=== PATIENT | female | born 1945 | race African-American/Black ===

== ENCOUNTER 2019-03-16 12:03 | Inpatient (IN) | payer BC, MEDICAID ==
[~2019-03-16] VITALS: Ht 177.8 cm; Wt 71.7 kg
[2019-03-16 12:31] LABS: BASOPHILS % 0.6 % (0.0-2.0); EOSINOPHILS % 0.9 % (0.0-5.0); HEMATOCRIT. 33.7 % (36.0-48.0); HEMOGLOBIN. 11.5 g/dL (12.0-16.0); LYMPHOCYTES % 25.2 % (20.0-50.0); MEAN CORPUSCULAR HEMOGLOBIN 29.3 pg (28.0-32.0); MEAN CORPUSCULAR VOLUME 85.9 fL (81.0-99.0); MONOCYTES % 14.2 % (2.0-8.0); NEUTROPHILS % 59.1 % (40.0-76.0); RED BLOOD CELL COUNT 3.92 mill/uL (4.2-5.4); RED CELL DISTRIBUTION WIDTH 16.3 % (11.6-14.6)
[2019-03-16 12:40] LABS: CHLORIDE 111 mEq/L (98-107)
[2019-03-16 12:41] LABS: INR 1.3; PROTHROMBIN TIME 13.6 sec (9.6-11.0)
[2019-03-16 12:43] LABS: ETHANOL BLOOD < 10 mg/dL
[2019-03-16 12:50] LABS: MEAN PLATELET VOLUME 7.4 fl (7.4-10.4); PLATELET 244 x1000/uL (130-400)
[2019-03-16] MEDS ORDERED: ALBUTEROL (0.083%) 2.5MG/3ML NEB HHN STA (13:55)
[2019-03-16] MEDS ORDERED: ONDANSETRON HCL 4MG/2ML INJ IV PRN (14:30)
[2019-03-16] MEDS ORDERED: ACETAMINOPHEN 325MG TABLET PO PRN (14:30)
[2019-03-16] MEDS ORDERED: IPRATROPIUM/ALBUTEROL 0.5-3(2.5)MG/3ML NEB HHN PRN (14:30)
[2019-03-16] MEDS ORDERED: LIDOCAINE HCL 1% 20ML VIAL (Pyxis) INJ ONE (14:33)
[2019-03-16] MEDS ORDERED: SODIUM BICARBONATE 4% (2.4MEQ) 5ML VIAL IV ONE (14:34)
[2019-03-16 16:00] VITALS: BP 92/54
[2019-03-16 17:17] VITALS: BP 92/54
[2019-03-16] MEDS ORDERED: AMLO5TAB88 PO (17:28)
[2019-03-16] MEDS ORDERED: BENA40TA9 PO (17:28)
[2019-03-16] MEDS ORDERED: IBUP-2030 PO (17:28)
[2019-03-16] MEDS: SPIRONOLACTONE 50MG TABLET PO SCH (18:15)
[2019-03-16] MEDS ORDERED: SIMETHICONE 80MG TABLET CHEW PO PRN (18:45)
[2019-03-16] MEDS ORDERED: MORPHINE SULFATE 2 MG/ML CPJ (NOT FOR IM USE) IV NR (18:45)
[2019-03-16 20:00] VITALS: BP 98/64
[2019-03-16] MEDS: FUROSEMIDE 40MG TABLET PO SCH (20:31)
[2019-03-17] VITALS (8 sets, daily range): BP systolic 75–110; BP diastolic 46–73
[2019-03-17 07:11] LABS: BASOPHILS % 0.4 % (0.0-2.0); EOSINOPHILS % 1.1 % (0.0-5.0); HEMATOCRIT. 28.9 % (36.0-48.0); HEMOGLOBIN. 9.9 g/dL (12.0-16.0); MEAN CORPUSCULAR HEMOGLOBIN 28.8 pg (28.0-32.0); MEAN CORPUSCULAR VOLUME 84.3 fL (81.0-99.0); MEAN PLATELET VOLUME 7.5 fl (7.4-10.4); MONOCYTES % 13.3 % (2.0-8.0); NEUTROPHILS % 56.2 % (40.0-76.0); PLATELET 224 x1000/uL (130-400); RED BLOOD CELL COUNT 3.43 mill/uL (4.2-5.4); RED CELL DISTRIBUTION WIDTH 16.3 % (11.6-14.6)
[2019-03-17 07:12] LABS: CHLORIDE 111 mEq/L (98-107)
[2019-03-17] MEDS: FUROSEMIDE 40MG TABLET PO SCH (09:00)
[2019-03-17] MEDS: SPIRONOLACTONE 50MG TABLET PO SCH (09:00)
[2019-03-17] MEDS: MIDODRINE HCL 5MG TABLET PO SCH ×3 (09:21→16:57)
[2019-03-17] MEDS ORDERED: SORBITOL 70% SOLN 30ML PO SCH (13:30)
[2019-03-17 17:55] LABS: HEPATITIS B SURFACE ANTIGEN NEGATIVE
[2019-03-17 18:25] LABS: HEPATITIS A AB IGM NEGATIVE (NEGATIVE)
== END 2019-03-17 20:20 | disposition home or self-care (01) | DRG 432 ==
LOC: ER 12:19 → 6WST 13:40 → ENRESERV 15:01
PROVIDERS: ADMIT Internal Medicine; ATTEND Internal Medicine
PROC: 0W9G3ZZ Drainage of Peritoneal Cavity, Percutaneous Approach (ICD-10-PCS; principal; 2019-03-16)
DX: K74.60 Unspecified cirrhosis of liver (principal); E43 Unspecified severe protein-calorie malnutrition; R18.8 Other ascites; B19.20 Unspecified viral hepatitis C without hepatic coma; I10 Essential (primary) hypertension; E87.8 Other disorders of electrolyte and fluid balance, not elsewhere classified; D64.9 Anemia, unspecified; I95.9 Hypotension, unspecified
CPT/HCPCS: 36415; 49083; 71045; 74176; 76700; 80048; 80320; 82040; 82140; 83880; 84484; 86705; 86709; 86803; 87340; 93005; 93970; 94640; 96374; 99285; J2270; J3490; J7611; G0480

== ENCOUNTER 2019-04-18 18:21 | Emergency (ER) | payer BC, MEDICAID ==
[~2019-04-18] VITALS: Ht 185.4 cm; Wt 69.0 kg
[~2019-04-18 18:21] MED LIST: IBUP-2030 PO
[2019-04-18] MEDS ORDERED: KETOROLAC 15MG/ML VIAL IV ONE (22:30)
[2019-04-18] MEDS ORDERED: HYDROCODONE/ACETAMINOPHEN 5/325MG TABLET PO ONE (22:30)
[2019-04-18 23:36] LABS: BASOPHILS % 1.2 % (0.0-2.0); EOSINOPHILS % 0.9 % (0.0-5.0); HEMATOCRIT. 34.1 % (36.0-48.0); HEMOGLOBIN. 11.5 g/dL (12.0-16.0); LYMPHOCYTES % 23.1 % (20.0-50.0); MEAN CORPUSCULAR HEMOGLOBIN 27.2 pg (28.0-32.0); MEAN PLATELET VOLUME 7.1 fl (7.4-10.4); NEUTROPHILS % 60.8 % (40.0-76.0); PLATELET 270 x1000/uL (130-400); RED BLOOD CELL COUNT 4.21 mill/uL (4.2-5.4); RED CELL DISTRIBUTION WIDTH 16.1 % (11.6-14.6)
[2019-04-18 23:39] LABS: INR 1.3
[2019-04-18 23:54] LABS: CHLORIDE 110 mEq/L (98-107)
[2019-04-19 01:03] VITALS: BP 99/76
== END 2019-04-19 00:21 | disposition short-term general hospital (02) ==
LOC: ER 18:21
DX: R18.8 Other ascites (principal); R06.03 Acute respiratory distress; I10 Essential (primary) hypertension
CPT/HCPCS: 36415; 71045; 80053; 83690; 83880; 84484; 85025; 85610; 93005; 96374; 99285; J1885

== ENCOUNTER 2019-05-03 11:20 | Emergency (ER) | payer BC, MEDICAID ==
[~2019-05-03] VITALS: Ht 172.7 cm; Wt 82.0 kg
[2019-05-03] MEDS ORDERED: ACETAMINOPHEN WITH CODEINE 300/30MG TABLET PO STA (11:36)
[2019-05-03 12:08] LABS: BASOPHILS % 0.7 % (0.0-2.0); EOSINOPHILS % 2.1 % (0.0-5.0); HEMATOCRIT. 35.9 % (36.0-48.0); HEMOGLOBIN. 12.1 g/dL (12.0-16.0); LYMPHOCYTES % 21.3 % (20.0-50.0); MEAN CORPUSCULAR HEMOGLOBIN 26.8 pg (28.0-32.0); MEAN CORPUSCULAR VOLUME 79.5 fL (81.0-99.0); MEAN PLATELET VOLUME 7.1 fl (7.4-10.4); MONOCYTES % 12.9 % (2.0-8.0); PLATELET 271 x1000/uL (130-400); RED BLOOD CELL COUNT 4.51 mill/uL (4.2-5.4); RED CELL DISTRIBUTION WIDTH 16.1 % (11.6-14.6)
[2019-05-03 12:13] LABS: CHLORIDE 110 mEq/L (98-107)
[2019-05-03 12:14] LABS: INR 1.3; PROTHROMBIN TIME 12.7 sec (9.6-11.0)
[2019-05-03] MEDS ORDERED: LIDOCAINE HCL 1% 20ML VIAL (Pyxis) INJ ONE (13:37)
[2019-05-03] MEDS ORDERED: SODIUM BICARBONATE 4% (2.4MEQ) 5ML VIAL IV ONE (13:38)
[2019-05-03 16:55] VITALS: BP 100/64
== END 2019-05-03 16:57 | disposition home or self-care (01) ==
LOC: ER 11:20
DX: R18.8 Other ascites (principal); I10 Essential (primary) hypertension; Z88.5 Allergy status to narcotic agent
CPT/HCPCS: 36415; 49083; 80053; 83690; 85025; 85610; 89050; 99285; J3490

== ENCOUNTER 2019-05-24 11:45 | Emergency (ER) | payer BC, MEDICAID ==
[~2019-05-24] VITALS: Ht 165.1 cm; Wt 64.0 kg
[2019-05-24 15:07] LABS: HEMATOCRIT. 38.2 % (36.0-48.0); HEMOGLOBIN. 12.6 g/dL (12.0-16.0); MEAN CORPUSCULAR HEMOGLOBIN 26.3 pg (28.0-32.0); MEAN CORPUSCULAR VOLUME 79.4 fL (81.0-99.0); MEAN PLATELET VOLUME 6.8 fl (7.4-10.4); PLATELET 274 x1000/uL (130-400); RED BLOOD CELL COUNT 4.81 mill/uL (4.2-5.4); RED CELL DISTRIBUTION WIDTH 17.6 % (11.6-14.6)
[2019-05-24] MEDS ORDERED: LIDOCAINE HCL 1% 20ML VIAL (Pyxis) INJ ONE (15:09)
[2019-05-24] MEDS ORDERED: SODIUM BICARBONATE 4% (2.4MEQ) 5ML VIAL IV ONE (15:09)
[2019-05-24 15:13] LABS: CHLORIDE 109 mEq/L (98-107)
[2019-05-24 15:51] LABS: ATYPICAL LYMPHOCYTES 3; PLATELET ESTIMATE NORMAL
[2019-05-24 17:12] VITALS: BP 99/57
== END 2019-05-24 17:38 | disposition home or self-care (01) ==
LOC: ER 11:55
DX: R14.0 Abdominal distension (gaseous) (principal); R06.02 Shortness of breath; I10 Essential (primary) hypertension; Z88.5 Allergy status to narcotic agent
CPT/HCPCS: 36415; 49083; 80053; 83690; 85025; 87070; 87075; 87205; 89050; 99285; J3490

== ENCOUNTER 2019-07-05 02:19 | Emergency (ER) | payer BC, MEDICAID ==
[~2019-07-05] VITALS: Ht 170.2 cm; Wt 78.0 kg
[2019-07-05 03:05] LABS: EOSINOPHILS % 1.6 % (0.0-5.0); HEMATOCRIT. 36.1 % (36.0-48.0); HEMOGLOBIN. 12.2 g/dL (12.0-16.0); MEAN CORPUSCULAR HEMOGLOBIN 26.6 pg (28.0-32.0); NEUTROPHILS % 63.4 % (40.0-76.0); PLATELET 299 x1000/uL (130-400); RED BLOOD CELL COUNT 4.57 mill/uL (4.2-5.4); RED CELL DISTRIBUTION WIDTH 19.5 % (11.6-14.6)
[2019-07-05 03:13] LABS: CHLORIDE 108 mEq/L (98-107); INR 1.2; PROTHROMBIN TIME 12.1 sec (9.6-11.0)
[2019-07-05] MEDS ORDERED: POTASSIUM CHLORIDE 20MEQ TABLET SR PO NR (03:30)
[2019-07-05 03:44] VITALS: BP 100/65
== END 2019-07-05 03:45 | disposition home or self-care (01) ==
LOC: ER 02:19
DX: R18.8 Other ascites (principal); K72.90 Hepatic failure, unspecified without coma; Z88.5 Allergy status to narcotic agent
CPT/HCPCS: 36415; 99283

== ENCOUNTER 2019-07-12 16:33 | Emergency (ER) | payer BC, MEDICAID ==
[~2019-07-12] VITALS: Ht 165.1 cm; Wt 75.0 kg
[2019-07-13] MEDS ORDERED: LIDOCAINE HCL 2%/EPINEPHRINE/PF 10 ML VIAL INFIL ONE
[2019-07-13 03:00] VITALS: BP 120/76
== END 2019-07-13 03:58 | disposition home or self-care (01) ==
LOC: ER 16:33
DX: R18.8 Other ascites (principal); K74.60 Unspecified cirrhosis of liver; Z88.6 Allergy status to analgesic agent
CPT/HCPCS: 99285; J3490

== ENCOUNTER 2019-08-08 13:20 | Inpatient (IN) | payer BC, MEDICAID ==
[~2019-08-08] VITALS: Ht 185.4 cm; Wt 72.1 kg
[2019-08-08] MEDS ORDERED: SODIUM CHLORIDE 0.9% 1,000 ML IV ONE (22:41)
[2019-08-08 23:59] LABS: BASOPHILS % 0.4 % (0.0-2.0); EOSINOPHILS % 1.6 % (0.0-5.0); HEMOGLOBIN. 10.9 g/dL (12.0-16.0); LYMPHOCYTES % 20.7 % (20.0-50.0); MEAN CORPUSCULAR HEMOGLOBIN 26.8 pg (28.0-32.0); MEAN CORPUSCULAR VOLUME 78.8 fL (81.0-99.0); MEAN PLATELET VOLUME 6.7 fl (7.4-10.4); MONOCYTES % 11.9 % (2.0-8.0); NEUTROPHILS % 65.4 % (40.0-76.0); PLATELET 266 x1000/uL (130-400); RED BLOOD CELL COUNT 4.06 mill/uL (4.2-5.4); RED CELL DISTRIBUTION WIDTH 19.8 % (11.6-14.6)
[2019-08-09 00:01] LABS: CHLORIDE 106 mEq/L (98-107)
[2019-08-09 00:03] LABS: INR 1.3; PROTHROMBIN TIME 13.1 sec (9.6-11.0)
[2019-08-09 03:00] VITALS: BP 89/57
[2019-08-09] MEDS ORDERED: FURO-152 PO (04:13)
[2019-08-09] MEDS ORDERED: CLONIDINE 0.1MG TABLET PO PRN (04:30)
[2019-08-09] MEDS ORDERED: ONDANSETRON HCL 4MG/2ML INJ IV PRN (04:30)
[2019-08-09] MEDS: MORPHINE SULFATE 2 MG/ML CPJ (NOT FOR IM USE) IV PRN ×2 (06:49→18:43)
[2019-08-09] MEDS: FUROSEMIDE 20MG TABLET PO SCH (10:17)
[2019-08-09 12:02] LABS: BASOPHILS % 0.3 % (0.0-2.0); EOSINOPHILS % 0.8 % (0.0-5.0); HEMATOCRIT. 34.5 % (36.0-48.0); HEMOGLOBIN. 11.5 g/dL (12.0-16.0); LYMPHOCYTES % 21.6 % (20.0-50.0); MEAN CORPUSCULAR HEMOGLOBIN 26.5 pg (28.0-32.0); MEAN CORPUSCULAR VOLUME 79.6 fL (81.0-99.0); MONOCYTES % 9.8 % (2.0-8.0); NEUTROPHILS % 67.5 % (40.0-76.0); PLATELET 265 x1000/uL (130-400); RED BLOOD CELL COUNT 4.34 mill/uL (4.2-5.4)
[2019-08-09] MEDS ORDERED: LIDOCAINE HCL 1% 20ML VIAL (Pyxis) INJ ONE (13:24)
[2019-08-09] MEDS ORDERED: SODIUM BICARBONATE 4% (2.4MEQ) 5ML VIAL IV ONE (13:25)
[2019-08-09 20:00] VITALS: BP 98/67
[2019-08-10] VITALS: BP 89/64
[2019-08-10] MEDS: MORPHINE SULFATE 2 MG/ML CPJ (NOT FOR IM USE) IV PRN ×2 (00:39→22:17)
[2019-08-10 04:00] VITALS: BP 90/52
[2019-08-10 08:00] VITALS: BP 81/47
[2019-08-10] MEDS: ACETAMINOPHEN 325MG TABLET PO PRN ×2 (08:09→15:47)
[2019-08-10] MEDS: FUROSEMIDE 20MG TABLET PO SCH (09:00)
[2019-08-10 12:00] VITALS: BP 101/68
[2019-08-10 16:00] VITALS: BP 99/66
[2019-08-10 20:00] VITALS: BP 103/66
[2019-08-11] VITALS: BP 94/55
[2019-08-11 04:00] VITALS: BP 100/68
[2019-08-11] MEDS: ACETAMINOPHEN 325MG TABLET PO PRN ×2 (05:22→14:41)
[2019-08-11 08:00] VITALS: BP 91/62
[2019-08-11] MEDS: FUROSEMIDE 20MG TABLET PO SCH (09:45)
[2019-08-11 12:00] VITALS: BP 86/60
[2019-08-11 16:00] VITALS: BP 97/63
[2019-08-11] MEDS: KETOROLAC 15MG/ML VIAL IV PRN (17:47)
[2019-08-11 20:00] VITALS: BP 90/53
[2019-08-12] VITALS: BP 96/56
[2019-08-12] MEDS: KETOROLAC 15MG/ML VIAL IV PRN (00:40)
[2019-08-12 04:00] VITALS: BP 103/52
[2019-08-12 08:00] VITALS: BP 93/51
[2019-08-12] MEDS: FUROSEMIDE 20MG TABLET PO SCH (09:14)
[2019-08-12] MEDS: ACETAMINOPHEN 325MG TABLET PO PRN (09:14)
[2019-08-12] MEDS ORDERED: LIDOCAINE HCL 1% 20ML VIAL (Pyxis) INJ ONE (10:18)
[2019-08-12] MEDS ORDERED: SODIUM BICARBONATE 4% (2.4MEQ) 5ML VIAL IV ONE (10:19)
[2019-08-12 12:00] VITALS: BP 105/68
[2019-08-12 12:13] VITALS: BP 93/51
[2019-09-09] MEDS ORDERED: FLOR PO (20:41)
[2019-09-09] MEDS ORDERED: PANT40SU MT (20:41)
[2019-09-09] MEDS ORDERED: MIDO5TAB4 PO (20:41)
[2019-09-09] MEDS ORDERED: THIA100T72 PO (20:41)
[2019-09-16] MEDS ORDERED: PROP10TA10 PO (15:45)
[2019-09-16] MEDS ORDERED: RIFA550T PO (15:45)
[2019-09-16] MEDS ORDERED: LACT10SO7 PO (15:45)
[2019-09-16] MEDS ORDERED: FOLI-43 PO (15:45)
== END 2019-08-12 14:13 | disposition home or self-care (01) | DRG 434 ==
LOC: ER 13:20 → 6EST 08-09 00:39 → EDBEDREQTM 08-09 00:55 → EDBEDREQ 08-09 00:55 → EDBEDREQDT 08-09 00:55 → ENRESERV 08-09 02:02
PROVIDERS: ADMIT Hospitalist; ATTEND Hospitalist
PROC: 0W9G3ZZ Drainage of Peritoneal Cavity, Percutaneous Approach (ICD-10-PCS; principal; 2019-08-09)
PROC: 0W9G3ZZ Drainage of Peritoneal Cavity, Percutaneous Approach (ICD-10-PCS; 2019-08-12)
DX: K70.31 Alcoholic cirrhosis of liver with ascites (principal); I10 Essential (primary) hypertension; D63.8 Anemia in other chronic diseases classified elsewhere; F10.10 Alcohol abuse, uncomplicated; M19.90 Unspecified osteoarthritis, unspecified site; Z88.6 Allergy status to analgesic agent; Z79.899 Other long term (current) drug therapy; I95.9 Hypotension, unspecified
CPT/HCPCS: 36415; 49083; 71045; 80053; 83880; 85025; 96360; 97162; 97166; 99285; C1893; J1885; J2270; J3490; J7030

== ENCOUNTER 2019-08-28 11:41 | Inpatient (IN) | payer BC, MEDICAID ==
[~2019-08-28] VITALS: Ht 162.6 cm; Wt 75.5 kg
[~2019-08-28 11:41] MED LIST changes: +FURO-152 PO; +OCTREOTIDE 1,000 MCG in SODIUM CHLORIDE 0.9% 98 ML IV PRN
[2019-08-28] MEDS ORDERED: PANTOPRAZOLE SODIUM 40 MG/VIAL IV STA (12:02)
[2019-08-28] MEDS ORDERED: SODIUM CHLORIDE 0.9% 1,000 ML IV ONE (12:02)
[2019-08-28] MEDS ORDERED: OCTREOTIDE 1,000 MCG in SODIUM CHLORIDE 0.9% 100 ML IV STA (12:02)
[2019-08-28] MEDS ORDERED: OCTREOTIDE ACETATE 50 MCG/ML 1ML IV STA (12:02)
[2019-08-28 13:14] LABS: BASOPHILS % 0.3 % (0.0-2.0); EOSINOPHILS % 0.3 % (0.0-5.0); HEMATOCRIT. 22.6 % (36.0-48.0); HEMOGLOBIN. 7.6 g/dL (12.0-16.0); LYMPHOCYTES % 16.6 % (20.0-50.0); MEAN CORPUSCULAR HEMOGLOBIN 27.2 pg (28.0-32.0); MEAN CORPUSCULAR VOLUME 80.7 fL (81.0-99.0); MEAN PLATELET VOLUME 7.2 fl (7.4-10.4); MONOCYTES % 7.7 % (2.0-8.0); NEUTROPHILS % 75.1 % (40.0-76.0); PLATELET 151 x1000/uL (130-400); RED CELL DISTRIBUTION WIDTH 19.1 % (11.6-14.6)
[2019-08-28 13:21] LABS: CHLORIDE 111 mEq/L (98-107)
[2019-08-28 13:22] LABS: INR 1.4; PROTHROMBIN TIME 14.3 sec (9.6-11.0)
[2019-08-28] MEDS ORDERED: SODIUM CHLORIDE 0.9% 1000ML BAG (SEPSIS BOLUS) IV ONE ×2 (13:45→17:15)
[2019-08-28] MEDS ORDERED: LIDOCAINE HCL 1% 20ML VIAL (Pyxis) INJ ONE (13:48)
[2019-08-28] MEDS ORDERED: SODIUM BICARBONATE 4% (2.4MEQ) 5ML VIAL IV ONE (13:48)
[2019-08-28] MEDS ORDERED: MORPHINE SULFATE 2 MG/ML CPJ (NOT FOR IM USE) IV PRN (14:15)
[2019-08-28] MEDS: DEXT 5%/0.45% NACL 1000ML 1,000 ML IV SCH (14:15)
[2019-08-28] MEDS ORDERED: PANTOPRAZOLE SODIUM 40 MG/VIAL IV SCH (17:00)
[2019-08-28] MEDS ORDERED: NOREPINEPHRINE 4MG/250ML PMX 250 ML IV STA (17:06)
[2019-08-28] MEDS ORDERED: PIPERACILLIN/TAZ 3.375G PREMIX 50 ML IV ONE (17:15)
[2019-08-28] MEDS ORDERED: PIPERACILLIN/TAZOBACTAM 3.375 G in DEXT 5% WATER 100 ML IV SCH ×2 (19:15→23:00)
[2019-08-28 21:19] LABS: HEMATOCRIT 27.6 % (36.0-48.0); HEMOGLOBIN 9.3 g/dL (12.0-16.0)
[2019-08-28] MEDS ORDERED: PANTOPRAZOLE SODIUM 40 MG/VIAL IV NR (23:14)
[2019-08-28] MEDS ORDERED: VANCOMYCIN 1,250 MG in DEXT 5% WATER 250 ML IV SCH (23:30)
[2019-08-29] VITALS (85 sets, daily range): BP systolic 61–174; BP diastolic 18–82
[2019-08-29] MEDS: DEXT 5%/0.45% NACL 1000ML 1,000 ML IV SCH ×3 (00:15→21:26)
[2019-08-29 00:24] LABS: HEMATOCRIT 27.7 % (36.0-48.0); HEMOGLOBIN 9.2 g/dL (12.0-16.0)
[2019-08-29] MEDS ORDERED: NOREPINEPHRINE 4MG/250ML PMX 250 ML IV PRN (01:45)
[2019-08-29] MEDS ORDERED: NOREPINEPHRINE 4MG in DEXT 5% WATER 250ML IV PRN (03:45)
[2019-08-29] MEDS: OCTREOTIDE 1000MCG in SODIUM CHLORIDE 0.9% 100ML IV PRN (04:38)
[2019-08-29 06:16] LABS: BASOPHILS % 0.2 % (0.0-2.0); EOSINOPHILS % 0.9 % (0.0-5.0); HEMATOCRIT. 29.2 % (36.0-48.0); HEMOGLOBIN. 9.9 g/dL (12.0-16.0); LYMPHOCYTES % 12.3 % (20.0-50.0); MEAN CORPUSCULAR HEMOGLOBIN 28.4 pg (28.0-32.0); MEAN PLATELET VOLUME 7.4 fl (7.4-10.4); MONOCYTES % 7.1 % (2.0-8.0); NEUTROPHILS % 79.5 % (40.0-76.0); PLATELET 203 x1000/uL (130-400); RED BLOOD CELL COUNT 3.47 mill/uL (4.2-5.4); RED CELL DISTRIBUTION WIDTH 18.8 % (11.6-14.6)
[2019-08-29] MEDS: PIPERACILLIN/TAZOBACTAM 2.25 G in DEXTROSE 5% WATER 50 ML IV SCH ×2 (08:54→16:33)
[2019-08-29] MEDS ORDERED: PANTOPRAZOLE SODIUM 40 MG/VIAL IV SCH (09:00)
[2019-08-29] MEDS: PANTOPRAZOLE SODIUM 40 MG/VIAL IV SCH ×2 (11:16→17:01)
[2019-08-29] MEDS ORDERED: SODIUM BICARBONATE 4% (2.4MEQ) 5ML VIAL IV ONE (12:52)
[2019-08-29] MEDS ORDERED: LIDOCAINE HCL 1% 20ML VIAL (Pyxis) INJ ONE (12:53)
[2019-08-29] MEDS ORDERED: ALBUMIN HUMAN 25GM/100ML (25%) IV NR (14:15)
[2019-08-29] MEDS: MIDODRINE HCL 5MG TABLET PO SCH ×2 (14:30→17:01)
[2019-08-29] MEDS ORDERED: NOREPINEPHRINE 4 MG in DEXT 5% WATER 246 ML IV PRN (18:41)
[2019-08-29 22:59] LABS: CLARITY URINE CLEAR (CLEAR); COLOR URINE YELLOW (YELLOW); KETONES URINE NEGATIVE (NEGATIVE); LEUKOCYTE ESTERASE URINE 1+ (NEGATIVE); NITRITE URINE NEGATIVE (NEGATIVE); OCCULT BLOOD URINE NEGATIVE (NEGATIVE); PH URINE 5.5 (4.5-8.0); PROTEIN URINE NEGATIVE (NEGATIVE); SPECIFIC GRAVITY URINE 1.014 (1.005-1.030)
[2019-08-30] VITALS (100 sets, daily range): BP systolic 79–131; BP diastolic 34–103
[2019-08-30] MEDS: PIPERACILLIN/TAZOBACTAM 2.25 G in DEXTROSE 5% WATER 50 ML IV SCH ×3 (00:13→16:24)
[2019-08-30] MEDS: NOREPINEPHRINE 16 MG in DEXT 5% WATER 234 ML IV PRN ×2 (01:25→16:25)
[2019-08-30 05:57] LABS: BASOPHILS % 0.8 % (0.0-2.0); HEMOGLOBIN. 10.3 g/dL (12.0-16.0); LYMPHOCYTES % 22.2 % (20.0-50.0); MEAN CORPUSCULAR HEMOGLOBIN 27.8 pg (28.0-32.0); MEAN CORPUSCULAR VOLUME 83.9 fL (81.0-99.0); MEAN PLATELET VOLUME 7.7 fl (7.4-10.4); MONOCYTES % 7.2 % (2.0-8.0); NEUTROPHILS % 68.8 % (40.0-76.0); PLATELET 191 x1000/uL (130-400); RED BLOOD CELL COUNT 3.69 mill/uL (4.2-5.4); RED CELL DISTRIBUTION WIDTH 18.6 % (11.6-14.6)
[2019-08-30 06:13] LABS: PHOSPHORUS 3.4 mg/dL (2.5-4.9)
[2019-08-30] MEDS: PANTOPRAZOLE SODIUM 40 MG/VIAL IV SCH ×2 (08:26→17:14)
[2019-08-30] MEDS: MIDODRINE HCL 5MG TABLET PO SCH ×3 (08:27→17:00)
[2019-08-30] MEDS: OCTREOTIDE 1000MCG in SODIUM CHLORIDE 0.9% 100ML IV PRN (09:35)
[2019-08-30] MEDS ORDERED: ALBUMIN HUMAN 25GM/100ML (25%) IV NR (09:45)
[2019-08-30] MEDS ORDERED: BACTERIOSTATIC SODIUM CHLORIDE 0.9% 30ML VIAL IJ ONE (11:27)
[2019-08-30] MEDS: DEXT 5%/0.45% NACL 1000ML 1,000 ML IV SCH ×2 (13:10→16:15)
[2019-08-30] MEDS ORDERED: VANCOMYCIN 1 G PREMIX 200 ML IV NR (15:00)
[2019-08-30] MEDS ORDERED: MIDAZOLAM HCL 5 MG/5 ML VIAL ONE (17:16)
[2019-08-30] MEDS ORDERED: FENTANYL CITRATE/PF 50MCG/ML 2ML VIAL ONE (17:17)
[2019-08-30] MEDS ORDERED: MIDAZOLAM HCL 5 MG/5 ML VIAL IV PRN (17:38)
[2019-08-31] VITALS (96 sets, daily range): BP systolic 66–127; BP diastolic 17–70
[2019-08-31] MEDS: PIPERACILLIN/TAZOBACTAM 2.25 G in DEXTROSE 5% WATER 50 ML IV SCH ×4 (00:12→23:14)
[2019-08-31] MEDS: DEXT 5%/0.45% NACL 1000ML 1,000 ML IV SCH ×2 (02:04→12:51)
[2019-08-31 06:10] LABS: BASOPHILS % 0.6 % (0.0-2.0); EOSINOPHILS % 1.8 % (0.0-5.0); HEMATOCRIT. 27.7 % (36.0-48.0); HEMOGLOBIN. 9.4 g/dL (12.0-16.0); LYMPHOCYTES % 10.5 % (20.0-50.0); MEAN CORPUSCULAR HEMOGLOBIN 28.6 pg (28.0-32.0); MEAN CORPUSCULAR VOLUME 84.3 fL (81.0-99.0); MEAN PLATELET VOLUME 7.9 fl (7.4-10.4); MONOCYTES % 9.8 % (2.0-8.0); NEUTROPHILS % 77.3 % (40.0-76.0); PLATELET 168 x1000/uL (130-400); RED BLOOD CELL COUNT 3.28 mill/uL (4.2-5.4); RED CELL DISTRIBUTION WIDTH 19.2 % (11.6-14.6)
[2019-08-31 06:16] LABS: CHLORIDE 109 mEq/L (98-107)
[2019-08-31 06:22] LABS: PHOSPHORUS 2.7 mg/dL (2.5-4.9)
[2019-08-31] MEDS: MIDODRINE HCL 5MG TABLET PO SCH ×3 (08:48→16:56)
[2019-08-31] MEDS: PANTOPRAZOLE SODIUM 40 MG/VIAL IV SCH ×2 (08:48→16:56)
[2019-08-31] MEDS: NOREPINEPHRINE 16 MG in DEXT 5% WATER 234 ML IV PRN (08:49)
[2019-08-31] MEDS ORDERED: POTASSIUM CHLORIDE 20MEQ TABLET SR PO NR (09:45)
[2019-08-31] MEDS ORDERED: ALBUMIN HUMAN 25GM/100ML (25%) IV NR (12:13)
[2019-08-31] MEDS: TRAMADOL 50MG TABLET PO PRN (13:36)
[2019-08-31] MEDS ORDERED: VANCOMYCIN 750 MG PREMIX 150 ML IV SCH (16:00)
[2019-09-01] VITALS (99 sets, daily range): BP systolic 65–142; BP diastolic 25–75
[2019-09-01] MEDS: OCTREOTIDE 1000MCG in SODIUM CHLORIDE 0.9% 100ML IV PRN (01:06)
[2019-09-01] MEDS: DOPAMINE 400MG/250ML PREMIX 250 ML IV PRN (01:08)
[2019-09-01] MEDS: ONDANSETRON HCL 4MG/2ML INJ IV PRN (01:49)
[2019-09-01 06:37] LABS: BASOPHILS % 0.4 % (0.0-2.0); EOSINOPHILS % 2.4 % (0.0-5.0); HEMOGLOBIN. 9.7 g/dL (12.0-16.0); LYMPHOCYTES % 9.8 % (20.0-50.0); MEAN CORPUSCULAR HEMOGLOBIN 28.3 pg (28.0-32.0); MEAN CORPUSCULAR VOLUME 84.6 fL (81.0-99.0); MEAN PLATELET VOLUME 7.6 fl (7.4-10.4); MONOCYTES % 12.6 % (2.0-8.0); NEUTROPHILS % 74.8 % (40.0-76.0); PLATELET 156 x1000/uL (130-400); RED BLOOD CELL COUNT 3.43 mill/uL (4.2-5.4); RED CELL DISTRIBUTION WIDTH 19.2 % (11.6-14.6)
[2019-09-01 06:46] LABS: CHLORIDE 109 mEq/L (98-107)
[2019-09-01 06:59] LABS: PHOSPHORUS 2.7 mg/dL (2.5-4.9)
[2019-09-01] MEDS: PIPERACILLIN/TAZOBACTAM 2.25 G in DEXTROSE 5% WATER 50 ML IV SCH ×2 (08:12→17:06)
[2019-09-01] MEDS: MIDODRINE HCL 5MG TABLET PO SCH ×3 (08:12→18:43)
[2019-09-01] MEDS: PANTOPRAZOLE SODIUM 40 MG/VIAL IV SCH ×2 (08:12→17:06)
[2019-09-01] MEDS: DEXT 5%/0.45% NACL 1000ML 1,000 ML IV SCH (08:13)
[2019-09-01] MEDS ORDERED: POTASSIUM CHLORIDE 20MEQ TABLET SR PO ONE (10:30)
[2019-09-01] MEDS ORDERED: ALBUMIN HUMAN 25GM/100ML (25%) IV ONE (10:30)
[2019-09-01] MEDS ORDERED: VANCOMYCIN 750 MG PREMIX 150 ML IV SCH (14:00)
[2019-09-01] MEDS: NOREPINEPHRINE 16 MG in DEXT 5% WATER 234 ML IV PRN (21:56)
[2019-09-02] VITALS (97 sets, daily range): BP systolic 53–134; BP diastolic 32–79
[2019-09-02] MEDS: PIPERACILLIN/TAZOBACTAM 2.25 G in DEXTROSE 5% WATER 50 ML IV SCH ×4 (00:36→23:05)
[2019-09-02] MEDS: DOPAMINE 400MG/250ML PREMIX 250 ML IV PRN ×2 (03:51→22:49)
[2019-09-02] MEDS: DEXT 5%/0.45% NACL 1000ML 1,000 ML IV SCH (05:52)
[2019-09-02 06:53] LABS: BASOPHILS % 0.5 % (0.0-2.0); EOSINOPHILS % 2.3 % (0.0-5.0); HEMATOCRIT. 29.4 % (36.0-48.0); HEMOGLOBIN. 9.9 g/dL (12.0-16.0); LYMPHOCYTES % 13.1 % (20.0-50.0); MEAN CORPUSCULAR HEMOGLOBIN 28.8 pg (28.0-32.0); MEAN CORPUSCULAR VOLUME 85.6 fL (81.0-99.0); MEAN PLATELET VOLUME 7.8 fl (7.4-10.4); MONOCYTES % 13.3 % (2.0-8.0); NEUTROPHILS % 70.8 % (40.0-76.0); PLATELET 178 x1000/uL (130-400); RED BLOOD CELL COUNT 3.44 mill/uL (4.2-5.4); RED CELL DISTRIBUTION WIDTH 20.1 % (11.6-14.6)
[2019-09-02 07:57] LABS: PHOSPHORUS 2.6 mg/dL (2.5-4.9)
[2019-09-02] MEDS: PANTOPRAZOLE SODIUM 40 MG/VIAL IV SCH ×2 (08:24→16:21)
[2019-09-02] MEDS: OCTREOTIDE 1000MCG in SODIUM CHLORIDE 0.9% 100ML IV PRN (09:47)
[2019-09-02] MEDS: MIDODRINE HCL 5MG TABLET PO SCH ×3 (09:48→16:21)
[2019-09-02] MEDS ORDERED: VANCOMYCIN 750 MG PREMIX 150 ML IV SCH (15:00)
[2019-09-02] MEDS: THIAMINE HCL 100MG TABLET PO SCH (16:21)
[2019-09-02] MEDS: FOLIC ACID 1MG TABLET PO SCH (16:22)
[2019-09-02 20:30] LABS: INR 1.4; PROTHROMBIN TIME 14.1 sec (9.6-11.0)
[2019-09-03] VITALS (98 sets, daily range): BP systolic 47–122; BP diastolic 29–73
[2019-09-03] MEDS: TRAMADOL 50MG TABLET PO PRN ×2 (00:25→06:34)
[2019-09-03 06:04] LABS: BASOPHILS % 0.6 % (0.0-2.0); EOSINOPHILS % 1.8 % (0.0-5.0); HEMATOCRIT. 31.4 % (36.0-48.0); HEMOGLOBIN. 10.5 g/dL (12.0-16.0); MEAN CORPUSCULAR HEMOGLOBIN 28.5 pg (28.0-32.0); MEAN CORPUSCULAR VOLUME 85.4 fL (81.0-99.0); MEAN PLATELET VOLUME 7.5 fl (7.4-10.4); MONOCYTES % 13.2 % (2.0-8.0); NEUTROPHILS % 70.4 % (40.0-76.0); PLATELET 206 x1000/uL (130-400); RED BLOOD CELL COUNT 3.67 mill/uL (4.2-5.4); RED CELL DISTRIBUTION WIDTH 20.1 % (11.6-14.6)
[2019-09-03 06:07] LABS: INR 1.5; PROTHROMBIN TIME 14.8 sec (9.6-11.0)
[2019-09-03 06:25] LABS: PHOSPHORUS 2.2 mg/dL (2.5-4.9)
[2019-09-03] MEDS: THIAMINE HCL 100MG TABLET PO SCH (08:03)
[2019-09-03] MEDS: PIPERACILLIN/TAZOBACTAM 2.25 G in DEXTROSE 5% WATER 50 ML IV SCH ×3 (08:03→23:58)
[2019-09-03] MEDS: MIDODRINE HCL 5MG TABLET PO SCH ×3 (08:03→17:26)
[2019-09-03] MEDS: FOLIC ACID 1MG TABLET PO SCH (08:03)
[2019-09-03] MEDS: PANTOPRAZOLE SODIUM 40 MG/VIAL IV SCH ×2 (08:03→17:26)
[2019-09-03] MEDS ORDERED: LIDOCAINE HCL 1% 20ML VIAL (Pyxis) INJ ONE (08:05)
[2019-09-03] MEDS ORDERED: SODIUM BICARBONATE 4% (2.4MEQ) 5ML VIAL IV ONE (08:05)
[2019-09-03] MEDS ORDERED: ALBUMIN HUMAN 25GM/100ML (25%) IV SCH (09:00)
[2019-09-03] MEDS ORDERED: SODIUM PHOS,M-BASIC-D-BASIC 15 MM in DEXT 5% WATER 245 ML IV SCH (11:00)
[2019-09-03] MEDS: PROPRANOLOL HCL 10MG TABLET PO SCH ×2 (14:00→22:00)
[2019-09-03] MEDS: DOPAMINE 400MG/250ML PREMIX 250 ML IV PRN (18:27)
[2019-09-04] VITALS (99 sets, daily range): BP systolic 55–135; BP diastolic 21–70
[2019-09-04] MEDS: ONDANSETRON HCL 4MG/2ML INJ IV PRN (00:31)
[2019-09-04] MEDS ORDERED: OCTREOTIDE ACETATE 50 MCG/ML 1ML IV NR (01:00)
[2019-09-04] MEDS: OCTREOTIDE 1,000 MCG in SODIUM CHLORIDE 0.9% 98 ML IV PRN ×2 (01:17→19:46)
[2019-09-04 01:46] LABS: HEMATOCRIT 30.1 % (36.0-48.0); HEMOGLOBIN 10.3 g/dL (12.0-16.0)
[2019-09-04] MEDS: PROPRANOLOL HCL 10MG TABLET PO SCH ×2 (05:41→14:00)
[2019-09-04 06:11] LABS: BASOPHILS % 0.4 % (0.0-2.0); EOSINOPHILS % 0.7 % (0.0-5.0); HEMATOCRIT. 29.3 % (36.0-48.0); HEMOGLOBIN. 9.9 g/dL (12.0-16.0); LYMPHOCYTES % 9.4 % (20.0-50.0); MEAN CORPUSCULAR HEMOGLOBIN 28.9 pg (28.0-32.0); MEAN CORPUSCULAR VOLUME 85.4 fL (81.0-99.0); MEAN PLATELET VOLUME 7.5 fl (7.4-10.4); NEUTROPHILS % 82.5 % (40.0-76.0); PLATELET 214 x1000/uL (130-400); RED BLOOD CELL COUNT 3.43 mill/uL (4.2-5.4); RED CELL DISTRIBUTION WIDTH 20.3 % (11.6-14.6)
[2019-09-04 06:38] LABS: PHOSPHORUS 2.6 mg/dL (2.5-4.9)
[2019-09-04] MEDS: PIPERACILLIN/TAZOBACTAM 2.25 G in DEXTROSE 5% WATER 50 ML IV SCH (07:37)
[2019-09-04] MEDS: NOREPINEPHRINE 16 MG in DEXT 5% WATER 234 ML IV PRN ×3 (08:00→20:01)
[2019-09-04] MEDS: PANTOPRAZOLE SODIUM 40 MG/VIAL IV SCH ×2 (09:23→17:32)
[2019-09-04] MEDS: FOLIC ACID 1MG TABLET PO SCH (09:24)
[2019-09-04] MEDS: THIAMINE HCL 100MG TABLET PO SCH (09:24)
[2019-09-04] MEDS: MIDODRINE HCL 5MG TABLET PO SCH ×3 (09:24→17:32)
[2019-09-04] MEDS: DOPAMINE 400MG/250ML PREMIX 250 ML IV PRN (19:46)
[2019-09-05] VITALS (96 sets, daily range): BP systolic 63–123; BP diastolic 31–73
[2019-09-05 05:54] LABS: BASOPHILS % 0.7 % (0.0-2.0); EOSINOPHILS % 0.9 % (0.0-5.0); HEMOGLOBIN. 9.4 g/dL (12.0-16.0); LYMPHOCYTES % 13.4 % (20.0-50.0); MEAN CORPUSCULAR HEMOGLOBIN 28.5 pg (28.0-32.0); MEAN CORPUSCULAR VOLUME 84.9 fL (81.0-99.0); MEAN PLATELET VOLUME 7.6 fl (7.4-10.4); MONOCYTES % 10.3 % (2.0-8.0); NEUTROPHILS % 74.7 % (40.0-76.0); PLATELET 258 x1000/uL (130-400); RED BLOOD CELL COUNT 3.29 mill/uL (4.2-5.4); RED CELL DISTRIBUTION WIDTH 20.1 % (11.6-14.6)
[2019-09-05 06:00] LABS: PHOSPHORUS 2.9 mg/dL (2.5-4.9)
[2019-09-05] MEDS: THIAMINE HCL 100MG TABLET PO SCH (09:17)
[2019-09-05] MEDS: MIDODRINE HCL 5MG TABLET PO SCH ×3 (09:17→18:07)
[2019-09-05] MEDS: FOLIC ACID 1MG TABLET PO SCH (09:17)
[2019-09-05] MEDS: NOREPINEPHRINE 16 MG in DEXT 5% WATER 234 ML IV PRN ×2 (09:48→21:15)
[2019-09-05] MEDS: PANTOPRAZOLE SODIUM 40 MG/VIAL IV SCH ×2 (09:48→18:07)
[2019-09-05] MEDS: OCTREOTIDE 1,000 MCG in SODIUM CHLORIDE 0.9% 98 ML IV PRN (12:53)
[2019-09-06] VITALS (93 sets, daily range): BP systolic 55–141; BP diastolic 20–73
[2019-09-06] MEDS: OCTREOTIDE 1,000 MCG in SODIUM CHLORIDE 0.9% 98 ML IV PRN ×2 (01:09→23:00)
[2019-09-06] MEDS: THIAMINE HCL 100MG TABLET PO SCH (09:10)
[2019-09-06] MEDS: ONDANSETRON HCL 4MG/2ML INJ IV PRN (09:10)
[2019-09-06] MEDS: FOLIC ACID 1MG TABLET PO SCH (09:10)
[2019-09-06] MEDS: PANTOPRAZOLE SODIUM 40 MG/VIAL IV SCH ×2 (09:10→17:43)
[2019-09-06 09:42] LABS: BASOPHILS % 0.5 % (0.0-2.0); EOSINOPHILS % 1.1 % (0.0-5.0); HEMATOCRIT. 26.8 % (36.0-48.0); HEMOGLOBIN. 9.1 g/dL (12.0-16.0); LYMPHOCYTES % 12.7 % (20.0-50.0); MEAN CORPUSCULAR HEMOGLOBIN 28.8 pg (28.0-32.0); MEAN CORPUSCULAR VOLUME 84.4 fL (81.0-99.0); MEAN PLATELET VOLUME 7.4 fl (7.4-10.4); MONOCYTES % 9.2 % (2.0-8.0); NEUTROPHILS % 76.5 % (40.0-76.0); PLATELET 250 x1000/uL (130-400); RED BLOOD CELL COUNT 3.18 mill/uL (4.2-5.4); RED CELL DISTRIBUTION WIDTH 20.1 % (11.6-14.6)
[2019-09-06 09:59] LABS: PHOSPHORUS 2.1 mg/dL (2.5-4.9)
[2019-09-06] MEDS ORDERED: POTASSIUM-SODIUM PHOSPHATE POWDER PACKET PO SCH (10:15)
[2019-09-06] MEDS: MIDODRINE HCL 5MG TABLET PO SCH ×3 (10:33→17:43)
[2019-09-06] MEDS: NOREPINEPHRINE 16 MG in DEXT 5% WATER 234 ML IV PRN (12:18)
[2019-09-06] MEDS ORDERED: LACTULOSE 20G/30ML UDC PO NR (18:00)
[2019-09-06] MEDS: ACETAMINOPHEN 325MG TABLET PO PRN (22:57)
[2019-09-07] VITALS (86 sets, daily range): BP systolic 58–150; BP diastolic 37–77
[2019-09-07] MEDS: NOREPINEPHRINE 16 MG in DEXT 5% WATER 234 ML IV PRN ×2 (08:27→22:44)
[2019-09-07] MEDS: THIAMINE HCL 100MG TABLET PO SCH (08:31)
[2019-09-07] MEDS: FOLIC ACID 1MG TABLET PO SCH (08:31)
[2019-09-07] MEDS: PANTOPRAZOLE SODIUM 40 MG/VIAL IV SCH ×2 (08:31→17:36)
[2019-09-07] MEDS: MIDODRINE HCL 5MG TABLET PO SCH ×3 (08:32→17:36)
[2019-09-07 10:03] LABS: BASOPHILS % 0.9 % (0.0-2.0); EOSINOPHILS % 1.7 % (0.0-5.0); HEMATOCRIT. 28.4 % (36.0-48.0); HEMOGLOBIN. 9.5 g/dL (12.0-16.0); LYMPHOCYTES % 15.9 % (20.0-50.0); MEAN CORPUSCULAR HEMOGLOBIN 28.2 pg (28.0-32.0); MEAN CORPUSCULAR VOLUME 84.2 fL (81.0-99.0); MEAN PLATELET VOLUME 7.4 fl (7.4-10.4); MONOCYTES % 8.8 % (2.0-8.0); NEUTROPHILS % 72.7 % (40.0-76.0); PLATELET 279 x1000/uL (130-400); RED BLOOD CELL COUNT 3.37 mill/uL (4.2-5.4); RED CELL DISTRIBUTION WIDTH 20.2 % (11.6-14.6)
[2019-09-07] MEDS ORDERED: OCTREOTIDE 1,000 MCG in SODIUM CHLORIDE 0.9% 98 ML IV SCH (11:00)
[2019-09-07] MEDS ORDERED: MAGNESIUM CITRATE 300ML SOLUTION PO NR (16:00)
[2019-09-07] MEDS ORDERED: ALBUMIN HUMAN 25GM/100ML (25%) IV NR (16:00)
[2019-09-08] VITALS (101 sets, daily range): BP systolic 64–139; BP diastolic 18–75
[2019-09-08 06:31] LABS: BASOPHILS % 0.6 % (0.0-2.0); EOSINOPHILS % 1.4 % (0.0-5.0); HEMATOCRIT. 25.3 % (36.0-48.0); HEMOGLOBIN. 8.5 g/dL (12.0-16.0); LYMPHOCYTES % 13.6 % (20.0-50.0); MEAN CORPUSCULAR VOLUME 83.7 fL (81.0-99.0); MEAN PLATELET VOLUME 7.4 fl (7.4-10.4); MONOCYTES % 8.8 % (2.0-8.0); NEUTROPHILS % 75.6 % (40.0-76.0); PLATELET 250 x1000/uL (130-400); RED BLOOD CELL COUNT 3.03 mill/uL (4.2-5.4); RED CELL DISTRIBUTION WIDTH 19.9 % (11.6-14.6)
[2019-09-08] MEDS ORDERED: ALBUMIN HUMAN 25GM/100ML (25%) IV NR (08:30)
[2019-09-08] MEDS: PANTOPRAZOLE SODIUM 40 MG/VIAL IV SCH ×2 (08:56→18:21)
[2019-09-08] MEDS: FOLIC ACID 1MG TABLET PO SCH (08:57)
[2019-09-08] MEDS: FLUDROCORTISONE ACETATE 0.1MG TABLET PO SCH (08:57)
[2019-09-08] MEDS: MIDODRINE HCL 5MG TABLET PO SCH ×3 (08:57→18:21)
[2019-09-08] MEDS: THIAMINE HCL 100MG TABLET PO SCH (08:57)
[2019-09-08] MEDS ORDERED: SODIUM PHOS,M-BASIC-D-BASIC 15 MM in DEXT 5% WATER 245 ML IV ONE (09:00)
[2019-09-09] VITALS (61 sets, daily range): BP systolic 88–131; BP diastolic 35–93
[2019-09-09] MEDS: ACETAMINOPHEN 325MG TABLET PO PRN ×3 (00:42→22:02)
[2019-09-09] MEDS: ONDANSETRON HCL 4MG/2ML INJ IV PRN (01:14)
[2019-09-09 06:25] LABS: BASOPHILS % 0.5 % (0.0-2.0); EOSINOPHILS % 2.1 % (0.0-5.0); HEMOGLOBIN. 7.7 g/dL (12.0-16.0); LYMPHOCYTES % 14.5 % (20.0-50.0); MEAN CORPUSCULAR HEMOGLOBIN 28.1 pg (28.0-32.0); MEAN CORPUSCULAR VOLUME 83.9 fL (81.0-99.0); MEAN PLATELET VOLUME 7.4 fl (7.4-10.4); NEUTROPHILS % 73.9 % (40.0-76.0); PLATELET 223 x1000/uL (130-400); RED BLOOD CELL COUNT 2.74 mill/uL (4.2-5.4)
[2019-09-09 06:33] LABS: PHOSPHORUS 2.4 mg/dL (2.5-4.9)
[2019-09-09] MEDS: THIAMINE HCL 100MG TABLET PO SCH (09:08)
[2019-09-09] MEDS: PANTOPRAZOLE SODIUM 40 MG/VIAL IV SCH ×2 (09:08→17:53)
[2019-09-09] MEDS: FOLIC ACID 1MG TABLET PO SCH (09:08)
[2019-09-09] MEDS: FLUDROCORTISONE ACETATE 0.1MG TABLET PO SCH (09:09)
[2019-09-09] MEDS: MIDODRINE HCL 5MG TABLET PO SCH ×3 (09:09→17:53)
[2019-09-09] MEDS ORDERED: SODIUM PHOS,M-BASIC-D-BASIC 10 MM in DEXT 5% WATER 246.6667 ML IV NR (18:00)
[2019-09-09] MEDS ORDERED: MIDO5TAB4 PO (20:41)
[2019-09-09] MEDS ORDERED: FLOR PO (20:41)
[2019-09-09] MEDS ORDERED: THIA100T72 PO (20:41)
[2019-09-09] MEDS ORDERED: PANT40SU MT (20:41)
[2019-09-09 23:20] LABS: HEMOGLOBIN 8.6 g/dL (12.0-16.0)
[2019-09-10] VITALS (7 sets, daily range): BP systolic 92–164; BP diastolic 42–74
[2019-09-10 06:48] LABS: HEMATOCRIT. 22.9 % (36.0-48.0); MEAN CORPUSCULAR VOLUME 83.6 fL (81.0-99.0); MEAN PLATELET VOLUME 7.7 fl (7.4-10.4); PLATELET 214 x1000/uL (130-400); RED BLOOD CELL COUNT 2.74 mill/uL (4.2-5.4); RED CELL DISTRIBUTION WIDTH 19.7 % (11.6-14.6)
[2019-09-10 06:49] LABS: PHOSPHORUS 3.2 mg/dL (2.5-4.9)
[2019-09-10] MEDS: FOLIC ACID 1MG TABLET PO SCH (09:16)
[2019-09-10] MEDS: THIAMINE HCL 100MG TABLET PO SCH (09:16)
[2019-09-10] MEDS: MIDODRINE HCL 5MG TABLET PO SCH ×3 (09:17→18:49)
[2019-09-10] MEDS: PANTOPRAZOLE SODIUM 40 MG/VIAL IV SCH ×2 (09:17→17:33)
[2019-09-10] MEDS: FLUDROCORTISONE ACETATE 0.1MG TABLET PO SCH (09:17)
[2019-09-10] MEDS: ACETAMINOPHEN 325MG TABLET PO PRN ×2 (12:57→18:53)
[2019-09-10 13:30] LABS: PLATELET ESTIMATE NORMAL
[2019-09-10] MEDS ORDERED: PHYTONADIONE 10MG/ML AMP SUBCUT SCH (14:00)
[2019-09-10 16:59] LABS: INR 1.7; PROTHROMBIN TIME 17.1 sec (9.6-11.0)
[2019-09-11] VITALS: BP 107/68
[2019-09-11] MEDS: ACETAMINOPHEN 325MG TABLET PO PRN (01:14)
[2019-09-11 04:00] VITALS: BP 96/46
[2019-09-11 07:14] LABS: BASOPHILS % 0.6 % (0.0-2.0); EOSINOPHILS % 2.5 % (0.0-5.0); HEMATOCRIT. 24.4 % (36.0-48.0); LYMPHOCYTES % 12.4 % (20.0-50.0); MEAN CORPUSCULAR HEMOGLOBIN 27.9 pg (28.0-32.0); MEAN CORPUSCULAR VOLUME 84.7 fL (81.0-99.0); MONOCYTES % 8.7 % (2.0-8.0); NEUTROPHILS % 75.8 % (40.0-76.0); PLATELET 239 x1000/uL (130-400); RED BLOOD CELL COUNT 2.88 mill/uL (4.2-5.4); RED CELL DISTRIBUTION WIDTH 19.8 % (11.6-14.6)
[2019-09-11 07:38] LABS: PHOSPHORUS 2.8 mg/dL (2.5-4.9)
[2019-09-11 08:00] VITALS: BP 109/45
[2019-09-11] MEDS: FOLIC ACID 1MG TABLET PO SCH (08:40)
[2019-09-11] MEDS: THIAMINE HCL 100MG TABLET PO SCH (08:40)
[2019-09-11] MEDS: MIDODRINE HCL 5MG TABLET PO SCH ×3 (08:40→18:40)
[2019-09-11] MEDS: FLUDROCORTISONE ACETATE 0.1MG TABLET PO SCH (08:40)
[2019-09-11] MEDS: PANTOPRAZOLE SODIUM 40 MG/VIAL IV SCH ×2 (08:40→17:59)
[2019-09-11] MEDS: ALBUMIN HUMAN 25GM/100ML (25%) IV NR ×2 (09:00→13:24)
[2019-09-11] MEDS ORDERED: SODIUM BICARBONATE 4% (2.4MEQ) 5ML VIAL IV ONE (10:25)
[2019-09-11] MEDS ORDERED: LIDOCAINE HCL 1% 20ML VIAL (Pyxis) INJ ONE (10:25)
[2019-09-11 12:00] VITALS: BP 104/49
[2019-09-11] MEDS: SODIUM CHLORIDE 0.9% 1,000 ML IV SCH (15:08)
[2019-09-11 16:00] VITALS: BP 98/55
[2019-09-11 20:00] VITALS: BP 88/41
[2019-09-11] MEDS ORDERED: ALBUMIN HUMAN 25GM/100ML (25%) IV SCH (21:00)
[2019-09-12] VITALS (7 sets, daily range): BP systolic 93–131; BP diastolic 42–65
[2019-09-12 07:43] LABS: BASOPHILS % 0.5 % (0.0-2.0); EOSINOPHILS % 2.2 % (0.0-5.0); HEMATOCRIT. 23.3 % (36.0-48.0); HEMOGLOBIN. 7.9 g/dL (12.0-16.0); LYMPHOCYTES % 16.7 % (20.0-50.0); MEAN CORPUSCULAR HEMOGLOBIN 28.7 pg (28.0-32.0); MEAN CORPUSCULAR VOLUME 84.3 fL (81.0-99.0); MONOCYTES % 10.1 % (2.0-8.0); NEUTROPHILS % 70.5 % (40.0-76.0); PLATELET 231 x1000/uL (130-400); RED BLOOD CELL COUNT 2.76 mill/uL (4.2-5.4)
[2019-09-12 07:50] LABS: PHOSPHORUS 2.9 mg/dL (2.5-4.9)
[2019-09-12] MEDS ORDERED: ALBUMIN HUMAN 25GM/100ML (25%) IV NR (08:00)
[2019-09-12] MEDS: PANTOPRAZOLE SODIUM 40 MG/VIAL IV SCH ×2 (08:55→17:47)
[2019-09-12] MEDS: FLUDROCORTISONE ACETATE 0.1MG TABLET PO SCH (08:55)
[2019-09-12] MEDS: FOLIC ACID 1MG TABLET PO SCH (08:55)
[2019-09-12] MEDS: THIAMINE HCL 100MG TABLET PO SCH (08:55)
[2019-09-12] MEDS: SODIUM CHLORIDE 0.9% 1,000 ML IV SCH (08:56)
[2019-09-12] MEDS: MIDODRINE HCL 5MG TABLET PO SCH ×3 (11:00→17:47)
[2019-09-12] MEDS ORDERED: LACTULOSE 20G/30ML UDC PO SCH (13:30)
[2019-09-12] MEDS ORDERED: DEXTROSE 50% WATER 50ML SYRINGE IV PRN (14:15)
[2019-09-12] MEDS: LACTULOSE 20G/30ML UDC PO SCH ×2 (15:00→17:52)
[2019-09-12] MEDS: RIFAXIMIN 550 MG TABLET PO SCH (17:47)
[2019-09-13] VITALS (15 sets, daily range): BP systolic 106–146; BP diastolic 47–67
[2019-09-13] MEDS: LACTULOSE 20G/30ML UDC PO SCH ×4 (00:23→16:55)
[2019-09-13] MEDS: RIFAXIMIN 550 MG TABLET PO SCH ×3 (00:23→21:42)
[2019-09-13 07:02] LABS: BASOPHILS % 0.7 % (0.0-2.0); EOSINOPHILS % 0.3 % (0.0-5.0); HEMATOCRIT. 21.7 % (36.0-48.0); HEMOGLOBIN. 7.5 g/dL (12.0-16.0); LYMPHOCYTES % 9.2 % (20.0-50.0); MEAN CORPUSCULAR HEMOGLOBIN 28.7 pg (28.0-32.0); MEAN CORPUSCULAR VOLUME 83.2 fL (81.0-99.0); MEAN PLATELET VOLUME 7.9 fl (7.4-10.4); MONOCYTES % 8.1 % (2.0-8.0); NEUTROPHILS % 81.7 % (40.0-76.0); PLATELET 191 x1000/uL (130-400); RED CELL DISTRIBUTION WIDTH 19.9 % (11.6-14.6)
[2019-09-13 07:51] LABS: CHLORIDE 111 mEq/L (98-107)
[2019-09-13] MEDS: MIDODRINE HCL 5MG TABLET PO SCH ×3 (08:37→16:55)
[2019-09-13] MEDS: THIAMINE HCL 100MG TABLET PO SCH (08:38)
[2019-09-13] MEDS: FOLIC ACID 1MG TABLET PO SCH (08:39)
[2019-09-13] MEDS: FLUDROCORTISONE ACETATE 0.1MG TABLET PO SCH (08:39)
[2019-09-13] MEDS: PANTOPRAZOLE SODIUM 40 MG/VIAL IV SCH ×2 (08:43→16:55)
[2019-09-13 17:03] LABS: BASOPHILS % 0.5 % (0.0-2.0); EOSINOPHILS % 0.9 % (0.0-5.0); HEMATOCRIT. 26.1 % (36.0-48.0); HEMOGLOBIN. 8.9 g/dL (12.0-16.0); LYMPHOCYTES % 12.7 % (20.0-50.0); MEAN CORPUSCULAR HEMOGLOBIN 28.9 pg (28.0-32.0); MEAN CORPUSCULAR VOLUME 84.9 fL (81.0-99.0); MEAN PLATELET VOLUME 8.2 fl (7.4-10.4); MONOCYTES % 10.8 % (2.0-8.0); NEUTROPHILS % 75.1 % (40.0-76.0); PLATELET 199 x1000/uL (130-400); RED BLOOD CELL COUNT 3.07 mill/uL (4.2-5.4); RED CELL DISTRIBUTION WIDTH 19.3 % (11.6-14.6)
[2019-09-13 17:20] LABS: HEPATITIS B SURFACE AB < 3.1 mIU/mL
[2019-09-13 17:31] LABS: HEPATITIS B SURFACE ANTIGEN NEGATIVE
[2019-09-14] VITALS (10 sets, daily range): BP systolic 89–159; BP diastolic 41–97
[2019-09-14] MEDS: ACETAMINOPHEN 325MG TABLET PO PRN (01:51)
[2019-09-14] MEDS: LACTULOSE 20G/30ML UDC PO SCH ×5 (05:33→23:53)
[2019-09-14 07:40] LABS: BASOPHILS % 0.6 % (0.0-2.0); HEMATOCRIT. 25.9 % (36.0-48.0); HEMOGLOBIN. 8.8 g/dL (12.0-16.0); LYMPHOCYTES % 11.9 % (20.0-50.0); MEAN CORPUSCULAR HEMOGLOBIN 28.8 pg (28.0-32.0); MEAN CORPUSCULAR VOLUME 84.6 fL (81.0-99.0); MEAN PLATELET VOLUME 8.1 fl (7.4-10.4); MONOCYTES % 9.8 % (2.0-8.0); NEUTROPHILS % 75.7 % (40.0-76.0); PLATELET 188 x1000/uL (130-400); RED BLOOD CELL COUNT 3.06 mill/uL (4.2-5.4); RED CELL DISTRIBUTION WIDTH 19.3 % (11.6-14.6)
[2019-09-14 08:02] LABS: PHOSPHORUS 3.2 mg/dL (2.5-4.9)
[2019-09-14] MEDS: PANTOPRAZOLE SODIUM 40 MG/VIAL IV SCH ×2 (09:34→18:53)
[2019-09-14] MEDS: FOLIC ACID 1MG TABLET PO SCH (09:35)
[2019-09-14] MEDS: MIDODRINE HCL 5MG TABLET PO SCH ×3 (09:35→18:54)
[2019-09-14] MEDS: RIFAXIMIN 550 MG TABLET PO SCH ×2 (09:35→20:43)
[2019-09-14] MEDS: FLUDROCORTISONE ACETATE 0.1MG TABLET PO SCH (09:35)
[2019-09-14] MEDS: THIAMINE HCL 100MG TABLET PO SCH (09:39)
[2019-09-15] VITALS (8 sets, daily range): BP systolic 91–159; BP diastolic 42–86
[2019-09-15] MEDS: LACTULOSE 20G/30ML UDC PO SCH ×5 (06:00→23:12)
[2019-09-15 06:01] LABS: BASOPHILS % 0.4 % (0.0-2.0); EOSINOPHILS % 2.3 % (0.0-5.0); HEMATOCRIT. 25.3 % (36.0-48.0); HEMOGLOBIN. 8.7 g/dL (12.0-16.0); LYMPHOCYTES % 11.4 % (20.0-50.0); MEAN CORPUSCULAR HEMOGLOBIN 29.2 pg (28.0-32.0); MEAN CORPUSCULAR VOLUME 85.1 fL (81.0-99.0); MONOCYTES % 9.3 % (2.0-8.0); NEUTROPHILS % 76.6 % (40.0-76.0); PLATELET 161 x1000/uL (130-400); RED BLOOD CELL COUNT 2.97 mill/uL (4.2-5.4); RED CELL DISTRIBUTION WIDTH 19.6 % (11.6-14.6)
[2019-09-15 06:25] LABS: CHLORIDE 108 mEq/L (98-107)
[2019-09-15 06:40] LABS: PHOSPHORUS 2.3 mg/dL (2.5-4.9)
[2019-09-15] MEDS: PANTOPRAZOLE SODIUM 40 MG/VIAL IV SCH ×2 (09:34→17:49)
[2019-09-15] MEDS: RIFAXIMIN 550 MG TABLET PO SCH ×2 (09:36→21:07)
[2019-09-15] MEDS: MIDODRINE HCL 5MG TABLET PO SCH ×3 (09:36→17:50)
[2019-09-15] MEDS: THIAMINE HCL 100MG TABLET PO SCH (09:36)
[2019-09-15] MEDS: FOLIC ACID 1MG TABLET PO SCH (09:36)
[2019-09-15] MEDS: FLUDROCORTISONE ACETATE 0.1MG TABLET PO SCH (09:36)
[2019-09-15] MEDS: PROPRANOLOL HCL 10MG TABLET PO SCH ×2 (13:44→21:00)
[2019-09-15] MEDS: POTASSIUM-SODIUM PHOSPHATE POWDER PACKET PO SCH ×2 (13:45→17:00)
[2019-09-16] VITALS (12 sets, daily range): BP systolic 98–145; BP diastolic 49–82
[2019-09-16] MEDS: LACTULOSE 20G/30ML UDC PO SCH ×3 (06:00→17:00)
[2019-09-16 06:31] LABS: BASOPHILS % 1.1 % (0.0-2.0); EOSINOPHILS % 4.6 % (0.0-5.0); HEMATOCRIT. 26.5 % (36.0-48.0); HEMOGLOBIN. 8.9 g/dL (12.0-16.0); LYMPHOCYTES % 17.2 % (20.0-50.0); MEAN CORPUSCULAR HEMOGLOBIN 28.6 pg (28.0-32.0); MEAN CORPUSCULAR VOLUME 85.6 fL (81.0-99.0); MEAN PLATELET VOLUME 8.1 fl (7.4-10.4); MONOCYTES % 9.7 % (2.0-8.0); NEUTROPHILS % 67.4 % (40.0-76.0); PLATELET 165 x1000/uL (130-400); RED CELL DISTRIBUTION WIDTH 19.9 % (11.6-14.6)
[2019-09-16 06:57] LABS: PHOSPHORUS 3.8 mg/dL (2.5-4.9)
[2019-09-16] MEDS: PROPRANOLOL HCL 10MG TABLET PO SCH ×2 (09:00→22:18)
[2019-09-16] MEDS: PANTOPRAZOLE SODIUM 40 MG/VIAL IV SCH ×2 (09:01→17:45)
[2019-09-16] MEDS: POTASSIUM-SODIUM PHOSPHATE POWDER PACKET PO SCH ×2 (09:01→17:45)
[2019-09-16] MEDS: FOLIC ACID 1MG TABLET PO SCH (09:03)
[2019-09-16] MEDS: MIDODRINE HCL 5MG TABLET PO SCH ×3 (09:03→22:17)
[2019-09-16] MEDS: FLUDROCORTISONE ACETATE 0.1MG TABLET PO SCH (09:03)
[2019-09-16] MEDS: THIAMINE HCL 100MG TABLET PO SCH (09:03)
[2019-09-16] MEDS: RIFAXIMIN 550 MG TABLET PO SCH ×2 (09:12→22:17)
[2019-09-16] MEDS ORDERED: PROP10TA10 PO (15:45)
[2019-09-16] MEDS ORDERED: FOLI-43 PO (15:45)
[2019-09-16] MEDS ORDERED: LACT10SO7 PO (15:45)
[2019-09-16] MEDS ORDERED: RIFA550T PO (15:45)
[2019-09-17] VITALS (12 sets, daily range): BP systolic 82–121; BP diastolic 30–83
[2019-09-17] MEDS: ACETAMINOPHEN 325MG TABLET PO PRN ×3 (04:57→19:20)
[2019-09-17] MEDS: POTASSIUM-SODIUM PHOSPHATE POWDER PACKET PO SCH ×2 (08:06→16:51)
[2019-09-17] MEDS: FOLIC ACID 1MG TABLET PO SCH (08:06)
[2019-09-17] MEDS: THIAMINE HCL 100MG TABLET PO SCH (08:06)
[2019-09-17] MEDS: LACTULOSE 20G/30ML UDC PO SCH ×3 (08:06→16:50)
[2019-09-17] MEDS: RIFAXIMIN 550 MG TABLET PO SCH ×2 (08:06→21:00)
[2019-09-17] MEDS: PANTOPRAZOLE SODIUM 40 MG/VIAL IV SCH ×2 (08:06→16:51)
[2019-09-17] MEDS: MIDODRINE HCL 5MG TABLET PO SCH ×3 (08:07→16:52)
[2019-09-17] MEDS: FLUDROCORTISONE ACETATE 0.1MG TABLET PO SCH (08:07)
[2019-09-17] MEDS: PROPRANOLOL HCL 10MG TABLET PO SCH ×2 (08:25→21:00)
[2019-09-17 10:43] LABS: BASOPHILS % 0.6 % (0.0-2.0); EOSINOPHILS % 5.3 % (0.0-5.0); HEMATOCRIT. 24.8 % (36.0-48.0); HEMOGLOBIN. 8.5 g/dL (12.0-16.0); LYMPHOCYTES % 15.6 % (20.0-50.0); MEAN CORPUSCULAR HEMOGLOBIN 28.8 pg (28.0-32.0); MEAN CORPUSCULAR VOLUME 84.3 fL (81.0-99.0); MONOCYTES % 12.3 % (2.0-8.0); NEUTROPHILS % 66.2 % (40.0-76.0); PLATELET 153 x1000/uL (130-400); RED BLOOD CELL COUNT 2.94 mill/uL (4.2-5.4); RED CELL DISTRIBUTION WIDTH 19.4 % (11.6-14.6)
[2019-09-17 10:52] LABS: INR 1.8; PROTHROMBIN TIME 17.8 sec (9.6-11.0)
[2019-09-17 10:54] LABS: PHOSPHORUS 4.4 mg/dL (2.5-4.9)
[2019-09-18] VITALS (12 sets, daily range): BP systolic 81–117; BP diastolic 41–68
[2019-09-18] MEDS: ACETAMINOPHEN 325MG TABLET PO PRN ×2 (01:01→11:28)
[2019-09-18 08:40] LABS: INR 1.8; PARTIAL THROMBOPLASTIN TIME 36.3 sec (23.4-31.0); PROTHROMBIN TIME 17.8 sec (9.6-11.0)
[2019-09-18 08:44] LABS: PHOSPHORUS 3.9 mg/dL (2.5-4.9)
[2019-09-18] MEDS: MIDODRINE HCL 5MG TABLET PO SCH ×2 (08:47→13:16)
[2019-09-18] MEDS: FLUDROCORTISONE ACETATE 0.1MG TABLET PO SCH (08:47)
[2019-09-18] MEDS: PANTOPRAZOLE SODIUM 40 MG/VIAL IV SCH (08:47)
[2019-09-18] MEDS: FOLIC ACID 1MG TABLET PO SCH (08:58)
[2019-09-18] MEDS: PROPRANOLOL HCL 10MG TABLET PO SCH (08:58)
[2019-09-18] MEDS: LACTULOSE 20G/30ML UDC PO SCH (08:58)
[2019-09-18] MEDS: POTASSIUM-SODIUM PHOSPHATE POWDER PACKET PO SCH (08:58)
[2019-09-18] MEDS: RIFAXIMIN 550 MG TABLET PO SCH (08:59)
[2019-09-18] MEDS: THIAMINE HCL 100MG TABLET PO SCH (08:59)
[2019-09-18 09:06] LABS: HIV SCREEN 4G Non Reactive (Non Reactive)
[2019-09-18] MEDS ORDERED: LIDOCAINE HCL 1% 20ML VIAL (Pyxis) INJ ONE (10:10)
[2019-09-18] MEDS ORDERED: SODIUM BICARBONATE 4% (2.4MEQ) 5ML VIAL IV ONE (10:10)
[2019-09-18 11:59] LABS: BASOPHILS % 0.4 % (0.0-2.0); EOSINOPHILS % 3.9 % (0.0-5.0); HEMATOCRIT. 26.8 % (36.0-48.0); LYMPHOCYTES % 17.6 % (20.0-50.0); MEAN CORPUSCULAR HEMOGLOBIN 28.5 pg (28.0-32.0); MEAN CORPUSCULAR VOLUME 85.2 fL (81.0-99.0); MONOCYTES % 9.9 % (2.0-8.0); NEUTROPHILS % 68.2 % (40.0-76.0); PLATELET 164 x1000/uL (130-400); RED BLOOD CELL COUNT 3.15 mill/uL (4.2-5.4); RED CELL DISTRIBUTION WIDTH 19.8 % (11.6-14.6)
== END 2019-09-18 15:30 | disposition left against medical advice (07) | DRG 871 ==
LOC: ER 11:41 → CVICU 13:53 → EDBEDREQ 13:56 → EDBEDREQTM 13:56 → EDBEDREQ 17:12 → EDBEDREQSVC 17:12 → EDBEDREQ 17:13 → ENRESERV 23:31 → 5WST 09-09 16:19 → 5EST 09-12 18:02
PROVIDERS: ADMIT Family Medicine; ATTEND Family Medicine
PROC: 30233N1 Transfusion of Nonautologous Red Blood Cells into Peripheral Vein, Percutaneous Approach (ICD-10-PCS; 2019-08-28)
PROC: 02HV33Z Insertion of Infusion Device into Superior Vena Cava, Percutaneous Approach (ICD-10-PCS; 2019-08-28)
PROC: B548ZZA Ultrasonography of Superior Vena Cava, Guidance (ICD-10-PCS; 2019-08-28)
PROC: 0W9G3ZZ Drainage of Peritoneal Cavity, Percutaneous Approach (ICD-10-PCS; 2019-08-29)
PROC: 0DJ08ZZ Inspection of Upper Intestinal Tract, Via Natural or Artificial Opening Endoscopic (ICD-10-PCS; principal; 2019-08-30)
PROC: 0W9G3ZZ Drainage of Peritoneal Cavity, Percutaneous Approach (ICD-10-PCS; 2019-09-03)
PROC: 0W9G3ZZ Drainage of Peritoneal Cavity, Percutaneous Approach (ICD-10-PCS; 2019-09-11)
PROC: 5A1D70Z Performance of Urinary Filtration, Intermittent, Less than 6 Hours Per Day (ICD-10-PCS; 2019-09-12)
PROC: B548ZZA Ultrasonography of Superior Vena Cava, Guidance (ICD-10-PCS; 2019-09-12)
PROC: 02HV33Z Insertion of Infusion Device into Superior Vena Cava, Percutaneous Approach (ICD-10-PCS; 2019-09-12)
PROC: B5181ZA Fluoroscopy of Superior Vena Cava using Low Osmolar Contrast, Guidance (ICD-10-PCS; 2019-09-12)
PROC: 5A1D70Z Performance of Urinary Filtration, Intermittent, Less than 6 Hours Per Day (ICD-10-PCS; 2019-09-14)
PROC: 5A1D70Z Performance of Urinary Filtration, Intermittent, Less than 6 Hours Per Day (ICD-10-PCS; 2019-09-17)
PROC: 0JH63XZ Insertion of Tunneled Vascular Access Device into Chest Subcutaneous Tissue and Fascia, Percutaneous Approach (ICD-10-PCS; 2019-09-18)
PROC: 02HV33Z Insertion of Infusion Device into Superior Vena Cava, Percutaneous Approach (ICD-10-PCS; 2019-09-18)
PROC: B5181ZA Fluoroscopy of Superior Vena Cava using Low Osmolar Contrast, Guidance (ICD-10-PCS; 2019-09-18)
PROC: 02PY33Z Removal of Infusion Device from Great Vessel, Percutaneous Approach (ICD-10-PCS; 2019-09-18)
DX: A41.50 Gram-negative sepsis, unspecified (principal); N17.0 Acute kidney failure with tubular necrosis; R65.21 Severe sepsis with septic shock; E43 Unspecified severe protein-calorie malnutrition; R57.1 Hypovolemic shock; K22.11 Ulcer of esophagus with bleeding; R18.8 Other ascites; D68.9 Coagulation defect, unspecified; E87.2 Acidosis; K76.6 Portal hypertension; I85.00 Esophageal varices without bleeding; K74.60 Unspecified cirrhosis of liver; B18.2 Chronic viral hepatitis C; D50.9 Iron deficiency anemia, unspecified; I27.20 Pulmonary hypertension, unspecified; N18.9 Chronic kidney disease, unspecified; K31.89 Other diseases of stomach and duodenum; K44.9 Diaphragmatic hernia without obstruction or gangrene; E78.5 Hyperlipidemia, unspecified; I07.1 Rheumatic tricuspid insufficiency; E87.6 Hypokalemia; E83.39 Other disorders of phosphorus metabolism; M19.90 Unspecified osteoarthritis, unspecified site; F10.10 Alcohol abuse, uncomplicated; K70.40 Alcoholic hepatic failure without coma; I12.9 Hypertensive chronic kidney disease with stage 1 through stage 4 chronic kidney disease, or unspecified chronic kidney disease; Z53.29 Procedure and treatment not carried out because of patient's decision for other reasons; Z82.49 Family history of ischemic heart disease and other diseases of the circulatory system; Z87.891 Personal history of nicotine dependence; Z88.6 Allergy status to analgesic agent; Z88.8 Allergy status to other drugs, medicaments and biological substances; Z68.28 Body mass index [BMI] 28.0-28.9, adult
CPT/HCPCS: 36415; 36558; 49083; 71045; 76705; 76770; 76937; 77001; 80048; 80053; 80202; 81003; 82040; 82140; 82550; 82962; 83036; 83605; 83735; 84100; 84145; 84484; 85014; 85018; 85025; 86703; 86705; 86706; 86803; 86850; 86900; 86920; 87340; 87389; 92610; 93005; 93306; 93970; 96361; 96365; 96375; 96376; 97110; 97116; 97162; 97164; 97166; 97168; 97530; 97535; 99285; C1725; C1750; C1752; C1769; C9113; J1265; J1642; J2250; J2270; J2354; J2405; J2543; J3010; J3370; J3430; J3490; J7030; J7042; J7050; J7060; P9016; P9047; A4315

== ENCOUNTER 2019-09-22 13:26 | Inpatient (IN) | payer BC, MEDICAID ==
[~2019-09-22] VITALS: Ht 167.6 cm; Wt 73.2 kg
[~2019-09-22 13:26] MED LIST changes: +FLOR PO; +FOLI-43 PO; -FURO-152 PO; -IBUP-2030 PO; +LACT10SO7 PO; +MIDO5TAB4 PO; -OCTREOTIDE 1,000 MCG in SODIUM CHLORIDE 0.9% 98 ML IV PRN; +PANT40SU MT; +PROP10TA10 PO; +RIFA550T PO; +THIA100T72 PO
[2019-09-22] MEDS ORDERED: SODIUM CHLORIDE 0.9% 1,000 ML IV ONE (14:38)
[2019-09-22 15:18] LABS: BASOPHILS % 0.4 % (0.0-2.0); EOSINOPHILS % 1.1 % (0.0-5.0); HEMATOCRIT. 29.1 % (36.0-48.0); HEMOGLOBIN. 9.9 g/dL (12.0-16.0); LYMPHOCYTES % 14.8 % (20.0-50.0); MEAN CORPUSCULAR VOLUME 85.5 fL (81.0-99.0); MEAN PLATELET VOLUME 8.1 fl (7.4-10.4); NEUTROPHILS % 71.7 % (40.0-76.0); PLATELET 176 x1000/uL (130-400); RED CELL DISTRIBUTION WIDTH 19.9 % (11.6-14.6)
[2019-09-22 16:40] LABS: CHLORIDE 109 mEq/L (98-107)
[2019-09-22 16:43] LABS: ETHANOL BLOOD < 10 mg/dL
[2019-09-22 16:48] LABS: CREATINE KINASE 32 IU/L (26-192)
[2019-09-22] MEDS ORDERED: LACTULOSE 20G/30ML UDC PO ONE (18:00)
[2019-09-22] MEDS: MULTIVITAMINS,THER W-MINERALS TABLET PO SCH (22:15)
[2019-09-22] MEDS ORDERED: ONDANSETRON HCL 4MG/2ML INJ IV PRN (22:15)
[2019-09-22] MEDS ORDERED: HYDROCODONE/ACETAMINOPHEN 5/325MG TABLET PO PRN (22:15)
[2019-09-22] MEDS ORDERED: LORAZEPAM 2MG/ML CPJ IV PRN (22:15)
[2019-09-23 06:04] LABS: BASOPHILS % 0.7 % (0.0-2.0); EOSINOPHILS % 2.1 % (0.0-5.0); HEMATOCRIT. 25.9 % (36.0-48.0); LYMPHOCYTES % 23.5 % (20.0-50.0); MEAN CORPUSCULAR HEMOGLOBIN 29.3 pg (28.0-32.0); MEAN CORPUSCULAR VOLUME 84.5 fL (81.0-99.0); MEAN PLATELET VOLUME 7.8 fl (7.4-10.4); MONOCYTES % 12.7 % (2.0-8.0); PLATELET 176 x1000/uL (130-400); RED BLOOD CELL COUNT 3.06 mill/uL (4.2-5.4); RED CELL DISTRIBUTION WIDTH 19.3 % (11.6-14.6)
[2019-09-23 06:10] LABS: CHLORIDE 111 mEq/L (98-107)
[2019-09-23 06:15] LABS: PHOSPHORUS 5.6 mg/dL (2.5-4.9)
[2019-09-23 06:18] LABS: CREATINE KINASE 25 IU/L (26-192)
[2019-09-23] MEDS: THIAMINE HCL 100MG TABLET PO SCH ×2 (09:00→23:11)
[2019-09-23] MEDS: MULTIVITAMINS,THER W-MINERALS TABLET PO SCH ×2 (09:00→23:11)
[2019-09-23] MEDS: ASPIRIN 81MG EC TABLET PO SCH (10:10)
[2019-09-23] MEDS: FOLIC ACID 1MG TABLET PO SCH (16:41)
[2019-09-23 22:00] VITALS: BP 107/68
[2019-09-23 22:35] VITALS: BP 107/68
[2019-09-24] VITALS (7 sets, daily range): BP systolic 100–117; BP diastolic 64–71
[2019-09-24] MEDS: MORPHINE SULFATE 2 MG/ML CPJ (NOT FOR IM USE) IV PRN (04:57)
[2019-09-24] MEDS ORDERED: ENOXAPARIN 40MG/0.4ML SYR SUBCUT SCH (09:00)
[2019-09-24] MEDS: FOLIC ACID 1MG TABLET PO SCH (09:27)
[2019-09-24] MEDS: ASPIRIN 81MG EC TABLET PO SCH (09:27)
[2019-09-24] MEDS: THIAMINE HCL 100MG TABLET PO SCH (09:27)
[2019-09-24] MEDS: MULTIVITAMINS,THER W-MINERALS TABLET PO SCH (09:28)
[2019-09-24] MEDS: LEVOTHYROXINE SODIUM 50MCG TABLET PO SCH (12:03)
[2019-09-24] MEDS: LACTULOSE 20G/30ML UDC PO SCH ×2 (15:12→21:23)
[2019-09-24 17:09] LABS: INR 1.3; PARTIAL THROMBOPLASTIN TIME 39.7 sec (23.4-31.0); PROTHROMBIN TIME 13.6 sec (9.6-11.0)
[2019-09-24 18:26] LABS: CREATINE KINASE 26 IU/L (26-192)
[2019-09-24] MEDS: PROPRANOLOL HCL 10MG TABLET PO SCH (21:00)
[2019-09-25] VITALS: BP 99/68
[2019-09-25 04:00] VITALS: BP 101/65
[2019-09-25 06:27] LABS: INR 1.3; PARTIAL THROMBOPLASTIN TIME 36.9 sec (23.4-31.0); PROTHROMBIN TIME 13.8 sec (9.6-11.0)
[2019-09-25 06:32] LABS: BASOPHILS % 0.5 % (0.0-2.0); EOSINOPHILS % 2.3 % (0.0-5.0); HEMATOCRIT. 25.6 % (36.0-48.0); HEMOGLOBIN. 8.6 g/dL (12.0-16.0); LYMPHOCYTES % 17.7 % (20.0-50.0); MEAN CORPUSCULAR HEMOGLOBIN 28.6 pg (28.0-32.0); MEAN CORPUSCULAR VOLUME 85.1 fL (81.0-99.0); MEAN PLATELET VOLUME 7.6 fl (7.4-10.4); MONOCYTES % 14.3 % (2.0-8.0); NEUTROPHILS % 65.2 % (40.0-76.0); PLATELET 155 x1000/uL (130-400); RED CELL DISTRIBUTION WIDTH 19.3 % (11.6-14.6)
[2019-09-25] MEDS: LACTULOSE 20G/30ML UDC PO SCH ×3 (06:53→21:17)
[2019-09-25 08:00] VITALS: BP 111/66
[2019-09-25] MEDS: PROPRANOLOL HCL 10MG TABLET PO SCH ×2 (09:00→21:00)
[2019-09-25] MEDS: MULTIVITAMINS,THER W-MINERALS TABLET PO SCH (09:22)
[2019-09-25] MEDS: LEVOTHYROXINE SODIUM 50MCG TABLET PO SCH (09:22)
[2019-09-25] MEDS: OMEPRAZOLE 20MG CAPSULE EXTENDED RELEASE PO SCH (09:22)
[2019-09-25] MEDS: THIAMINE HCL 100MG TABLET PO SCH (09:22)
[2019-09-25] MEDS: FOLIC ACID 1MG TABLET PO SCH (09:23)
[2019-09-25] MEDS ORDERED: LIDOCAINE HCL 1% 20ML VIAL (Pyxis) INJ ONE (10:20)
[2019-09-25] MEDS ORDERED: SODIUM BICARBONATE 4% (2.4MEQ) 5ML VIAL IV ONE (10:21)
[2019-09-25 12:30] VITALS: BP 100/63
[2019-09-25 13:31] VITALS: BP 100/63
[2019-09-25 19:13] LABS: HEPATITIS B SURFACE ANTIGEN NEGATIVE
[2019-09-25 19:43] LABS: HEPATITIS A AB IGM NEGATIVE (NEGATIVE)
[2019-09-25 20:00] VITALS: BP 98/63
[2019-09-26] VITALS: BP 87/46
[2019-09-26] MEDS: MORPHINE SULFATE 2 MG/ML CPJ (NOT FOR IM USE) IV PRN ×2 (02:29→20:19)
[2019-09-26 04:00] VITALS: BP 98/54
[2019-09-26] MEDS: LACTULOSE 20G/30ML UDC PO SCH ×3 (05:55→22:03)
[2019-09-26 07:27] LABS: BASOPHILS % 1.4 % (0.0-2.0); EOSINOPHILS % 2.3 % (0.0-5.0); HEMATOCRIT. 27.2 % (36.0-48.0); HEMOGLOBIN. 9.2 g/dL (12.0-16.0); LYMPHOCYTES % 23.4 % (20.0-50.0); MEAN CORPUSCULAR VOLUME 85.7 fL (81.0-99.0); MEAN PLATELET VOLUME 7.6 fl (7.4-10.4); NEUTROPHILS % 61.9 % (40.0-76.0); PLATELET 152 x1000/uL (130-400); RED BLOOD CELL COUNT 3.17 mill/uL (4.2-5.4); RED CELL DISTRIBUTION WIDTH 19.6 % (11.6-14.6)
[2019-09-26 08:00] VITALS: BP 101/57
[2019-09-26] MEDS: OMEPRAZOLE 20MG CAPSULE EXTENDED RELEASE PO SCH (08:01)
[2019-09-26] MEDS: LEVOTHYROXINE SODIUM 50MCG TABLET PO SCH (08:01)
[2019-09-26] MEDS: MULTIVITAMINS,THER W-MINERALS TABLET PO SCH (08:01)
[2019-09-26] MEDS: FOLIC ACID 1MG TABLET PO SCH (08:01)
[2019-09-26] MEDS: THIAMINE HCL 100MG TABLET PO SCH (08:01)
[2019-09-26] MEDS: PROPRANOLOL HCL 10MG TABLET PO SCH ×2 (08:12→20:24)
[2019-09-26 12:00] VITALS: BP 110/63
[2019-09-26 16:00] VITALS: BP 108/77
[2019-09-26 20:00] VITALS: BP 106/67
[2019-09-26] MEDS: RIFAXIMIN 550 MG TABLET PO SCH (20:18)
[2019-09-27] VITALS: BP 100/53
[2019-09-27 04:00] VITALS: BP 90/64
[2019-09-27] MEDS: LACTULOSE 20G/30ML UDC PO SCH ×3 (05:47→21:34)
[2019-09-27] MEDS: MORPHINE SULFATE 2 MG/ML CPJ (NOT FOR IM USE) IV PRN ×2 (06:00→20:36)
[2019-09-27 08:00] VITALS: BP 128/53
[2019-09-27] MEDS: OMEPRAZOLE 20MG CAPSULE EXTENDED RELEASE PO SCH (08:31)
[2019-09-27] MEDS: RIFAXIMIN 550 MG TABLET PO SCH ×2 (08:31→20:47)
[2019-09-27] MEDS: FOLIC ACID 1MG TABLET PO SCH (08:31)
[2019-09-27] MEDS: MULTIVITAMINS,THER W-MINERALS TABLET PO SCH (08:31)
[2019-09-27] MEDS: PROPRANOLOL HCL 10MG TABLET PO SCH ×2 (08:32→20:48)
[2019-09-27] MEDS: LEVOTHYROXINE SODIUM 50MCG TABLET PO SCH (08:32)
[2019-09-27] MEDS: THIAMINE HCL 100MG TABLET PO SCH (08:32)
[2019-09-27 12:00] VITALS: BP 141/65
[2019-09-27] MEDS ORDERED: HEPARIN SODIUM 1,000 UNIT/1ML VIAL IV NR (14:30)
[2019-09-27 16:00] VITALS: BP 138/72
[2019-09-27 16:25] LABS: BASOPHILS % 0.5 % (0.0-2.0); EOSINOPHILS % 1.8 % (0.0-5.0); HEMATOCRIT. 22.8 % (36.0-48.0); HEMOGLOBIN. 7.7 g/dL (12.0-16.0); LYMPHOCYTES % 20.8 % (20.0-50.0); MEAN CORPUSCULAR HEMOGLOBIN 28.5 pg (28.0-32.0); MEAN CORPUSCULAR VOLUME 84.6 fL (81.0-99.0); MEAN PLATELET VOLUME 7.6 fl (7.4-10.4); NEUTROPHILS % 74.9 % (40.0-76.0); PLATELET 91 x1000/uL (130-400); RED BLOOD CELL COUNT 2.69 mill/uL (4.2-5.4); RED CELL DISTRIBUTION WIDTH 19.6 % (11.6-14.6)
[2019-09-27 20:00] VITALS: BP 112/90
[2019-09-28] VITALS: BP 89/58
[2019-09-28 04:00] VITALS: BP 84/60
[2019-09-28] MEDS: LACTULOSE 20G/30ML UDC PO SCH ×3 (06:00→21:05)
[2019-09-28 07:28] LABS: INR 1.3; PROTHROMBIN TIME 14.3 sec (9.6-11.0)
[2019-09-28 07:39] LABS: BASOPHILS % 0.5 % (0.0-2.0); EOSINOPHILS % 1.8 % (0.0-5.0); HEMATOCRIT. 25.9 % (36.0-48.0); HEMOGLOBIN. 8.8 g/dL (12.0-16.0); MEAN CORPUSCULAR HEMOGLOBIN 28.8 pg (28.0-32.0); MEAN CORPUSCULAR VOLUME 84.5 fL (81.0-99.0); MEAN PLATELET VOLUME 7.6 fl (7.4-10.4); MONOCYTES % 11.5 % (2.0-8.0); NEUTROPHILS % 68.2 % (40.0-76.0); PLATELET 143 x1000/uL (130-400); RED BLOOD CELL COUNT 3.07 mill/uL (4.2-5.4); RED CELL DISTRIBUTION WIDTH 19.9 % (11.6-14.6)
[2019-09-28 08:00] VITALS: BP 123/72
[2019-09-28] MEDS: FOLIC ACID 1MG TABLET PO SCH (08:47)
[2019-09-28] MEDS: THIAMINE HCL 100MG TABLET PO SCH (08:47)
[2019-09-28] MEDS: LEVOTHYROXINE SODIUM 50MCG TABLET PO SCH (08:47)
[2019-09-28] MEDS: MULTIVITAMINS,THER W-MINERALS TABLET PO SCH (08:47)
[2019-09-28] MEDS: RIFAXIMIN 550 MG TABLET PO SCH ×2 (08:47→21:05)
[2019-09-28] MEDS: OMEPRAZOLE 20MG CAPSULE EXTENDED RELEASE PO SCH (08:47)
[2019-09-28] MEDS: PROPRANOLOL HCL 10MG TABLET PO SCH ×2 (09:19→21:00)
[2019-09-28 12:00] VITALS: BP 104/55
[2019-09-28 16:00] VITALS: BP 137/72
[2019-09-28 20:00] VITALS: BP 95/62
[2019-09-29] VITALS: BP 103/62
[2019-09-29 04:00] VITALS: BP 97/51
[2019-09-29] MEDS: LACTULOSE 20G/30ML UDC PO SCH ×3 (06:14→21:01)
[2019-09-29 06:16] LABS: BASOPHILS % 0.5 % (0.0-2.0); EOSINOPHILS % 1.1 % (0.0-5.0); HEMATOCRIT. 24.6 % (36.0-48.0); HEMOGLOBIN. 8.4 g/dL (12.0-16.0); LYMPHOCYTES % 12.3 % (20.0-50.0); MEAN CORPUSCULAR HEMOGLOBIN 28.8 pg (28.0-32.0); MEAN CORPUSCULAR VOLUME 84.6 fL (81.0-99.0); MONOCYTES % 14.3 % (2.0-8.0); NEUTROPHILS % 71.8 % (40.0-76.0); PLATELET 161 x1000/uL (130-400); RED BLOOD CELL COUNT 2.91 mill/uL (4.2-5.4); RED CELL DISTRIBUTION WIDTH 20.3 % (11.6-14.6)
[2019-09-29 08:00] VITALS: BP 92/54
[2019-09-29] MEDS: THIAMINE HCL 100MG TABLET PO SCH (08:26)
[2019-09-29] MEDS: RIFAXIMIN 550 MG TABLET PO SCH ×2 (08:28→20:47)
[2019-09-29] MEDS: MULTIVITAMINS,THER W-MINERALS TABLET PO SCH (08:29)
[2019-09-29] MEDS: OMEPRAZOLE 20MG CAPSULE EXTENDED RELEASE PO SCH (08:30)
[2019-09-29] MEDS: FOLIC ACID 1MG TABLET PO SCH (08:30)
[2019-09-29] MEDS: LEVOTHYROXINE SODIUM 50MCG TABLET PO SCH (08:55)
[2019-09-29] MEDS: PROPRANOLOL HCL 10MG TABLET PO SCH ×2 (09:00→20:48)
[2019-09-29 12:00] VITALS: BP 96/56
[2019-09-29 16:12] VITALS: BP 93/56
[2019-09-29 20:00] VITALS: BP 99/48
[2019-09-29] MEDS: HYDROCODONE/ACETAMINOPHEN 5/325MG TABLET PO PRN (20:48)
[2019-09-30] VITALS: BP 95/46
[2019-09-30 04:00] VITALS: BP 95/47
[2019-09-30] MEDS: LEVOTHYROXINE SODIUM 50MCG TABLET PO SCH (06:15)
[2019-09-30] MEDS: OMEPRAZOLE 20MG CAPSULE EXTENDED RELEASE PO SCH (06:15)
[2019-09-30] MEDS: LACTULOSE 20G/30ML UDC PO SCH ×3 (06:15→21:17)
[2019-09-30 08:00] VITALS: BP 77/39
[2019-09-30] MEDS ORDERED: SODIUM CHLORIDE 0.9% 250 ML IV ONE (09:00)
[2019-09-30] MEDS: PROPRANOLOL HCL 10MG TABLET PO SCH ×2 (09:00→21:00)
[2019-09-30] MEDS: RIFAXIMIN 550 MG TABLET PO SCH ×2 (09:03→21:17)
[2019-09-30] MEDS: THIAMINE HCL 100MG TABLET PO SCH (09:03)
[2019-09-30] MEDS: FOLIC ACID 1MG TABLET PO SCH (09:04)
[2019-09-30] MEDS: MULTIVITAMINS,THER W-MINERALS TABLET PO SCH (09:04)
[2019-09-30 09:54] LABS: BASOPHILS % 0.5 % (0.0-2.0); HEMATOCRIT. 27.5 % (36.0-48.0); HEMOGLOBIN. 9.5 g/dL (12.0-16.0); LYMPHOCYTES % 9.5 % (20.0-50.0); MEAN CORPUSCULAR HEMOGLOBIN 28.9 pg (28.0-32.0); MEAN CORPUSCULAR VOLUME 83.9 fL (81.0-99.0); MEAN PLATELET VOLUME 7.6 fl (7.4-10.4); MONOCYTES % 13.4 % (2.0-8.0); NEUTROPHILS % 75.6 % (40.0-76.0); PLATELET 170 x1000/uL (130-400); RED BLOOD CELL COUNT 3.28 mill/uL (4.2-5.4); RED CELL DISTRIBUTION WIDTH 20.2 % (11.6-14.6)
[2019-09-30] MEDS: MIDODRINE HCL 5MG TABLET PO SCH ×2 (13:32→18:55)
[2019-09-30 14:30] VITALS: BP 88/56
[2019-09-30 16:00] VITALS: BP 86/48
[2019-09-30 20:00] VITALS: BP 88/58
[2019-10-01] VITALS: BP 78/56
[2019-10-01] MEDS: SODIUM CHLORIDE 0.9% 1,000 ML IV SCH (03:24)
[2019-10-01 04:00] VITALS: BP 79/46
[2019-10-01] MEDS: LACTULOSE 20G/30ML UDC PO SCH ×3 (06:00→22:00)
[2019-10-01] MEDS: PROPRANOLOL HCL 10MG TABLET PO SCH ×2 (09:00→21:00)
[2019-10-01] MEDS: MIDODRINE HCL 5MG TABLET PO SCH ×3 (09:31→17:36)
[2019-10-01] MEDS: FOLIC ACID 1MG TABLET PO SCH (09:32)
[2019-10-01] MEDS: MULTIVITAMINS,THER W-MINERALS TABLET PO SCH (09:32)
[2019-10-01] MEDS: LEVOTHYROXINE SODIUM 50MCG TABLET PO SCH (09:32)
[2019-10-01] MEDS: OMEPRAZOLE 20MG CAPSULE EXTENDED RELEASE PO SCH (09:32)
[2019-10-01] MEDS: THIAMINE HCL 100MG TABLET PO SCH (09:32)
[2019-10-01] MEDS: RIFAXIMIN 550 MG TABLET PO SCH ×2 (09:32→21:23)
[2019-10-01 12:39] VITALS: BP 82/48
[2019-10-01 16:00] VITALS: BP 85/53
[2019-10-01 16:59] LABS: HEMATOCRIT. 26.9 % (36.0-48.0); MEAN CORPUSCULAR VOLUME 83.6 fL (81.0-99.0); MEAN PLATELET VOLUME 8.3 fl (7.4-10.4); PLATELET 189 x1000/uL (130-400); RED BLOOD CELL COUNT 3.22 mill/uL (4.2-5.4); RED CELL DISTRIBUTION WIDTH 19.8 % (11.6-14.6)
[2019-10-01 17:29] LABS: PLATELET ESTIMATE NORMAL
[2019-10-01 20:00] VITALS: BP 78/53
[2019-10-02] VITALS (13 sets, daily range): BP systolic 66–159; BP diastolic 29–81
[2019-10-02] MEDS: SODIUM CHLORIDE 0.9% 1,000 ML IV SCH ×2 (00:22→21:41)
[2019-10-02] MEDS: LACTULOSE 20G/30ML UDC PO SCH ×3 (06:00→16:15)
[2019-10-02] MEDS: PROPRANOLOL HCL 10MG TABLET PO SCH ×2 (09:00→21:00)
[2019-10-02] MEDS ORDERED: NOREPINEPHRINE 4MG/250ML PMX 250 ML IV ONE (09:45)
[2019-10-02] MEDS: OMEPRAZOLE 20MG CAPSULE EXTENDED RELEASE PO SCH (10:11)
[2019-10-02] MEDS: MULTIVITAMINS,THER W-MINERALS TABLET PO SCH (10:11)
[2019-10-02] MEDS: THIAMINE HCL 100MG TABLET PO SCH (10:12)
[2019-10-02] MEDS: LEVOTHYROXINE SODIUM 50MCG TABLET PO SCH (10:12)
[2019-10-02] MEDS: MIDODRINE HCL 5MG TABLET PO SCH ×3 (10:13→18:31)
[2019-10-02] MEDS: FOLIC ACID 1MG TABLET PO SCH (10:14)
[2019-10-02] MEDS: RIFAXIMIN 550 MG TABLET PO SCH (10:16)
[2019-10-02] MEDS ORDERED: LIDOCAINE HCL 1% 20ML VIAL (Pyxis) INJ ONE (12:57)
[2019-10-02] MEDS ORDERED: NOREPINEPHRINE 4 MG in DEXTROSE 5% WATER 250 ML IV PRN (13:00)
[2019-10-02 13:03] LABS: INR 1.3; PROTHROMBIN TIME 14.4 sec (9.6-11.0)
[2019-10-02 16:04] LABS: HEMATOCRIT. 26.6 % (36.0-48.0); HEMOGLOBIN. 9.1 g/dL (12.0-16.0); MEAN CORPUSCULAR HEMOGLOBIN 28.4 pg (28.0-32.0); MEAN CORPUSCULAR VOLUME 82.9 fL (81.0-99.0); MEAN PLATELET VOLUME 8.1 fl (7.4-10.4); PLATELET 241 x1000/uL (130-400); RED BLOOD CELL COUNT 3.21 mill/uL (4.2-5.4); RED CELL DISTRIBUTION WIDTH 19.8 % (11.6-14.6)
[2019-10-02 16:51] LABS: PLATELET ESTIMATE NORMAL
[2019-10-03] VITALS (7 sets, daily range): BP systolic 79–138; BP diastolic 31–54
[2019-10-03 06:17] LABS: HEMATOCRIT. 26.9 % (36.0-48.0); HEMOGLOBIN. 9.1 g/dL (12.0-16.0); MEAN CORPUSCULAR HEMOGLOBIN 28.6 pg (28.0-32.0); MEAN CORPUSCULAR VOLUME 84.6 fL (81.0-99.0); MEAN PLATELET VOLUME 8.1 fl (7.4-10.4); PLATELET 249 x1000/uL (130-400); RED BLOOD CELL COUNT 3.18 mill/uL (4.2-5.4); RED CELL DISTRIBUTION WIDTH 19.9 % (11.6-14.6)
[2019-10-03] MEDS: LACTULOSE 20G/30ML UDC PO SCH ×3 (09:00→17:00)
[2019-10-03] MEDS: OMEPRAZOLE 20MG CAPSULE EXTENDED RELEASE PO SCH (09:26)
[2019-10-03] MEDS: FOLIC ACID 1MG TABLET PO SCH (09:26)
[2019-10-03] MEDS: MIDODRINE HCL 5MG TABLET PO SCH ×3 (09:26→19:46)
[2019-10-03] MEDS: THIAMINE HCL 100MG TABLET PO SCH (09:27)
[2019-10-03] MEDS: MULTIVITAMINS,THER W-MINERALS TABLET PO SCH (09:27)
[2019-10-03] MEDS: PROPRANOLOL HCL 10MG TABLET PO SCH ×2 (09:27→21:00)
[2019-10-03] MEDS: LEVOTHYROXINE SODIUM 50MCG TABLET PO SCH (09:27)
[2019-10-03 14:37] LABS: PLATELET ESTIMATE NORMAL
[2019-10-03] MEDS ORDERED: LACTULOSE 300 ML in WATER FOR IRRIGATION,STERILE 700 ML IR NR (17:00)
[2019-10-03] MEDS: SODIUM CHLORIDE 0.9% 1,000 ML IV SCH (19:12)
[2019-10-03] MEDS: HYDROCODONE/ACETAMINOPHEN 5/325MG TABLET PO PRN (21:55)
[2019-10-04] VITALS (7 sets, daily range): BP systolic 82–92; BP diastolic 41–60
[2019-10-04 05:11] LABS: BASOPHILS % 0.4 % (0.0-2.0); EOSINOPHILS % 0.2 % (0.0-5.0); HEMATOCRIT. 24.2 % (36.0-48.0); HEMOGLOBIN. 8.4 g/dL (12.0-16.0); LYMPHOCYTES % 7.8 % (20.0-50.0); MEAN CORPUSCULAR HEMOGLOBIN 29.1 pg (28.0-32.0); MEAN CORPUSCULAR VOLUME 84.1 fL (81.0-99.0); MONOCYTES % 11.8 % (2.0-8.0); NEUTROPHILS % 79.8 % (40.0-76.0); PLATELET 234 x1000/uL (130-400); RED BLOOD CELL COUNT 2.87 mill/uL (4.2-5.4); RED CELL DISTRIBUTION WIDTH 19.7 % (11.6-14.6)
[2019-10-04] MEDS: FOLIC ACID 1MG TABLET PO SCH (08:21)
[2019-10-04] MEDS: THIAMINE HCL 100MG TABLET PO SCH (08:21)
[2019-10-04] MEDS: MULTIVITAMINS,THER W-MINERALS TABLET PO SCH (08:21)
[2019-10-04] MEDS: LACTULOSE 20G/30ML UDC PO SCH ×3 (08:22→17:00)
[2019-10-04] MEDS: LEVOTHYROXINE SODIUM 50MCG TABLET PO SCH (08:22)
[2019-10-04] MEDS: MIDODRINE HCL 5MG TABLET PO SCH ×3 (08:22→17:58)
[2019-10-04] MEDS: PROPRANOLOL HCL 10MG TABLET PO SCH ×2 (08:22→21:00)
[2019-10-04] MEDS: OMEPRAZOLE 20MG CAPSULE EXTENDED RELEASE PO SCH (08:22)
[2019-10-04] MEDS ORDERED: HEPARIN SODIUM 1,000 UNIT/1ML VIAL IV SCH (09:15)
[2019-10-04] MEDS ORDERED: LACT10SO7 MT (17:04)
[2019-10-04] MEDS ORDERED: MIDO10TA MT (17:04)
[2019-10-04] MEDS ORDERED: PROP10TA10 MT (17:04)
[2019-10-04] MEDS ORDERED: FLOR MT (17:04)
[2019-10-04] MEDS: HYDROCODONE/ACETAMINOPHEN 5/325MG TABLET PO PRN (18:14)
[2019-10-05] VITALS (8 sets, daily range): BP systolic 80–96; BP diastolic 41–51
[2019-10-05] MEDS: SODIUM CHLORIDE 0.9% 1,000 ML IV SCH ×3 (01:57→21:38)
[2019-10-05] MEDS ORDERED: ALBUMIN HUMAN 25GM/100ML (25%) IV NR (06:00)
[2019-10-05] MEDS: OMEPRAZOLE 20MG CAPSULE EXTENDED RELEASE PO SCH (08:45)
[2019-10-05] MEDS: THIAMINE HCL 100MG TABLET PO SCH (08:45)
[2019-10-05] MEDS: MULTIVITAMINS,THER W-MINERALS TABLET PO SCH (08:45)
[2019-10-05] MEDS: FOLIC ACID 1MG TABLET PO SCH (08:45)
[2019-10-05] MEDS: LEVOTHYROXINE SODIUM 50MCG TABLET PO SCH (08:45)
[2019-10-05] MEDS: MIDODRINE HCL 5MG TABLET PO SCH ×3 (08:46→16:51)
[2019-10-05] MEDS: LACTULOSE 20G/30ML UDC PO SCH ×2 (08:53→16:51)
[2019-10-05] MEDS: PROPRANOLOL HCL 10MG TABLET PO SCH ×2 (08:53→21:00)
[2019-10-06] VITALS: BP 90/41
[2019-10-06] MEDS: TRAMADOL 50MG TABLET PO PRN (02:02)
[2019-10-06 04:00] VITALS: BP 90/47
[2019-10-06] MEDS: LEVOTHYROXINE SODIUM 50MCG TABLET PO SCH (06:39)
[2019-10-06] MEDS: OMEPRAZOLE 20MG CAPSULE EXTENDED RELEASE PO SCH (06:40)
[2019-10-06 08:00] VITALS: BP 99/44
[2019-10-06] MEDS: PROPRANOLOL HCL 10MG TABLET PO SCH ×2 (09:00→21:00)
[2019-10-06] MEDS: LACTULOSE 20G/30ML UDC PO SCH ×2 (09:00→17:00)
[2019-10-06] MEDS: MIDODRINE HCL 5MG TABLET PO SCH ×3 (09:01→17:26)
[2019-10-06] MEDS: MULTIVITAMINS,THER W-MINERALS TABLET PO SCH (09:01)
[2019-10-06] MEDS: FOLIC ACID 1MG TABLET PO SCH (09:01)
[2019-10-06] MEDS: THIAMINE HCL 100MG TABLET PO SCH (09:01)
[2019-10-06 12:00] VITALS: BP 71/42
[2019-10-06 16:00] VITALS: BP 76/47
[2019-10-06 20:00] VITALS: BP 96/58
[2019-10-07] VITALS (28 sets, daily range): BP systolic 57–165; BP diastolic 28–90
[2019-10-07] MEDS: SODIUM CHLORIDE 0.9% 1,000 ML IV SCH
[2019-10-07] MEDS: TRAMADOL 50MG TABLET PO PRN (05:31)
[2019-10-07 06:01] LABS: HEMATOCRIT. 26.5 % (36.0-48.0); HEMOGLOBIN. 8.8 g/dL (12.0-16.0); MEAN CORPUSCULAR VOLUME 84.1 fL (81.0-99.0); MEAN PLATELET VOLUME 7.5 fl (7.4-10.4); PLATELET 173 x1000/uL (130-400); RED BLOOD CELL COUNT 3.16 mill/uL (4.2-5.4); RED CELL DISTRIBUTION WIDTH 19.7 % (11.6-14.6)
[2019-10-07] MEDS: OMEPRAZOLE 20MG CAPSULE EXTENDED RELEASE PO SCH (06:23)
[2019-10-07] MEDS: LEVOTHYROXINE SODIUM 50MCG TABLET PO SCH (06:23)
[2019-10-07] MEDS ORDERED: SODIUM BICARBONATE 4% (2.4MEQ) 5ML VIAL IV ONE (08:00)
[2019-10-07] MEDS ORDERED: LIDOCAINE HCL 1% 20ML VIAL (Pyxis) INJ ONE (08:00)
[2019-10-07] MEDS: MIDODRINE HCL 5MG TABLET PO SCH ×3 (09:00→17:15)
[2019-10-07] MEDS: FOLIC ACID 1MG TABLET PO SCH (09:00)
[2019-10-07] MEDS: MULTIVITAMINS,THER W-MINERALS TABLET PO SCH (09:00)
[2019-10-07] MEDS: LACTULOSE 20G/30ML UDC PO SCH ×2 (09:00→16:53)
[2019-10-07] MEDS ORDERED: DEXT 10% WATER 1,000 ML IV SCH (09:00)
[2019-10-07] MEDS: THIAMINE HCL 100MG TABLET PO SCH (09:00)
[2019-10-07] MEDS: PROPRANOLOL HCL 10MG TABLET PO SCH (09:00)
[2019-10-07] MEDS ORDERED: DEXTROSE 5% WATER 1,000 ML IV SCH (09:15)
[2019-10-07 11:02] LABS: NUCLEATED RED BLOOD CELLS 3 /100 WBC; PLATELET ESTIMATE NORMAL
[2019-10-07] MEDS ORDERED: DEXTROSE 50% WATER 50ML SYRINGE IV NR (12:45)
[2019-10-07] MEDS ORDERED: MIDODRINE HCL 5MG TABLET PO NR (14:00)
[2019-10-07] MEDS ORDERED: PIPERACILLIN/TAZOBACTAM 3.375 G in DEXT 5% WATER 100 ML IV SCH (14:00)
[2019-10-07] MEDS: FLUDROCORTISONE ACETATE 0.1MG TABLET PO SCH (15:00)
[2019-10-07] MEDS ORDERED: NOREPINEPHRINE 8 MG in DEXT 5% WATER 242 ML IV PRN (15:30)
[2019-10-07 15:35] LABS: BG BASE EXCESS -15.2 mmol/L (-2.0-2.0); BG CARBOXYHEMOGLOBIN 0.3 % (0.5-1.5); BG FRACTION INSPIRED OXYGEN 60; BG HCO3 ACT 9.8 mmol/L (22.0-26.0); BG METHEMOGLOBIN 0.2 % (0.0-1.5); BG OXYHEMOGLOBIN 98.5 % (94.0-97.0); BG PCO2 21.3 mmHg (35.0-45.0); BG PH 7.281 (7.350-7.450); BG PO2 169.1 mmHg (75.0-100.0); BG SAMPLE SITE RIGHT BRACHIAL; BG TOTAL HEMOGLOBIN 9.7 g/dL (12.0-18.0); BG VENT MODE MASK - SIMPLE
[2019-10-07] MEDS ORDERED: ALBUMIN HUMAN 25GM/100ML (25%) IV NR (15:52)
[2019-10-07] MEDS ORDERED: SODIUM BICARBONATE 8.4% 1 MEQ/ML 50ML SYR IV NR (15:52)
[2019-10-07] MEDS: BLOOD SUGAR DIAGNOSTIC STRIP TEST SCH ×2 (15:56→19:30)
[2019-10-07] MEDS ORDERED: PIPERACILLIN/TAZOBACTAM 2.25 G in DEXTROSE 5% WATER 50 ML IV SCH (16:00)
[2019-10-07] MEDS ORDERED: MORPHINE SULFATE 2 MG/ML CPJ (NOT FOR IM USE) IV PRN (16:00)
[2019-10-07] MEDS ORDERED: PHENYLEPHRINE 20 MG in DEXT 5% WATER 248 ML IV PRN (16:15)
[2019-10-07] MEDS: DEXTROSE 50% WATER 50ML SYRINGE IV PRN ×2 (16:21→23:05)
[2019-10-07] MEDS ORDERED: VANCOMYCIN 1250MG in DEXTROSE 5% WATER 250ML IV SCH (17:00)
[2019-10-07] MEDS: MEROPENEM 500 MG in SODIUM CHLORIDE 0.9% 50 ML IV SCH (17:15)
[2019-10-07] MEDS ORDERED: SODIUM BICARBONATE 5MEQ SYR 150 MEQ in DEXTROSE 5% WATER 1,000 ML IV NR (18:00)
[2019-10-07 19:01] LABS: CLARITY URINE CLOUDY (CLEAR); COLOR URINE DARK YELLOW (YELLOW); KETONES URINE NEGATIVE (NEGATIVE); LEUKOCYTE ESTERASE URINE 2+ (NEGATIVE); NITRITE URINE POSITIVE (NEGATIVE); OCCULT BLOOD URINE NEGATIVE (NEGATIVE); PROTEIN URINE 1+ (NEGATIVE); SPECIFIC GRAVITY URINE 1.021 (1.005-1.030); UROBILINOGEN URINE 0.2 E.U./dL (0.2-1.0)
[2019-10-07] MEDS ORDERED: PHENYLEPHRINE 40 MG in DEXT 5% WATER 246 ML IV PRN (22:00)
[2019-10-07] MEDS ORDERED: NOREPINEPHRINE 32 MG in DEXT 5% WATER 468 ML IV PRN (22:30)
[2019-10-07] MEDS: PHENYLEPHRINE 40 MG in DEXT 5% WATER 496 ML IV PRN (23:53)
[2019-10-08] VITALS (50 sets, daily range): BP systolic 50–162; BP diastolic 31–77
[2019-10-08] MEDS: BLOOD SUGAR DIAGNOSTIC STRIP TEST SCH ×7 (00:14→15:51)
[2019-10-08 01:28] LABS: PROTHROMBIN TIME 31.7 sec (9.6-11.0)
[2019-10-08 01:36] LABS: PARTIAL THROMBOPLASTIN TIME 98.3 sec (23.4-31.0)
[2019-10-08] MEDS: DEXTROSE 50% WATER 50ML SYRINGE IV PRN ×3 (03:51→08:54)
[2019-10-08 04:21] LABS: BG BASE EXCESS -22.2 mmol/L (-2.0-2.0); BG CARBOXYHEMOGLOBIN 0.3 % (0.5-1.5); BG DEOXYHEMOGLOBIN 10.4 % (0.0-5.0); BG FRACTION INSPIRED OXYGEN 60; BG HCO3 ACT 7.5 mmol/L (22.0-26.0); BG METHEMOGLOBIN 0.2 % (0.0-1.5); BG OXYGEN SATURATION 89.5 % (92.0-98.5); BG OXYHEMOGLOBIN 89.1 % (94.0-97.0); BG PCO2 31.3 mmHg (35.0-45.0); BG PH 6.995 (7.350-7.450); BG PO2 77.6 mmHg (75.0-100.0); BG SAMPLE SITE RIGHT RADIAL; BG TOTAL HEMOGLOBIN 7.7 g/dL (12.0-18.0); BG VENT MODE MASK - SIMPLE
[2019-10-08] MEDS ORDERED: SODIUM BICARBONATE 8.4% 1 MEQ/ML 50ML SYR IV SCH (05:00)
[2019-10-08] MEDS ORDERED: MIDAZOLAM HCL 50 MG in DEXTROSE 5% WATER 40 ML IV PRN (06:00)
[2019-10-08 06:09] LABS: BG BASE EXCESS -18.5 mmol/L (-2.0-2.0); BG CARBOXYHEMOGLOBIN 0.5 % (0.5-1.5); BG DEOXYHEMOGLOBIN 1.4 % (0.0-5.0); BG FRACTION INSPIRED OXYGEN 100; BG HCO3 ACT 10.8 mmol/L (22.0-26.0); BG METHEMOGLOBIN 0.4 % (0.0-1.5); BG OXYGEN SATURATION 98.6 % (92.0-98.5); BG OXYHEMOGLOBIN 97.7 % (94.0-97.0); BG PCO2 41.1 mmHg (35.0-45.0); BG PH 7.038 (7.350-7.450); BG SAMPLE SITE RIGHT BRACHIAL; BG TIDAL VOLUME(mL) 500 mL; BG TOTAL HEMOGLOBIN 7.4 g/dL (12.0-18.0); BG VENT MODE VENT - A/C; BG VENT RATE 20 set
[2019-10-08] MEDS: MEROPENEM 500 MG in SODIUM CHLORIDE 0.9% 50 ML IV SCH (06:21)
[2019-10-08] MEDS ORDERED: SODIUM BICARBONATE 8.4% 1 MEQ/ML 50ML SYR IV ONE ×5 (06:30→10:45)
[2019-10-08] MEDS ORDERED: DEXT 10% WATER 1,000 ML IV SCH ×2 (06:30→08:00)
[2019-10-08 07:21] LABS: HEMATOCRIT. 22.8 % (36.0-48.0); MEAN CORPUSCULAR HEMOGLOBIN 28.1 pg (28.0-32.0); MEAN CORPUSCULAR VOLUME 89.7 fL (81.0-99.0); MEAN PLATELET VOLUME 7.5 fl (7.4-10.4); PLATELET 68 x1000/uL (130-400); RED BLOOD CELL COUNT 2.54 mill/uL (4.2-5.4); RED CELL DISTRIBUTION WIDTH 19.5 % (11.6-14.6)
[2019-10-08 07:49] LABS: BG BASE EXCESS -17.5 mmol/L (-2.0-2.0); BG CARBOXYHEMOGLOBIN 0.3 % (0.5-1.5); BG DEOXYHEMOGLOBIN 46.9 % (0.0-5.0); BG FRACTION INSPIRED OXYGEN 100; BG HCO3 ACT 13.5 mmol/L (22.0-26.0); BG METHEMOGLOBIN 0.3 % (0.0-1.5); BG OXYGEN SATURATION 52.8 % (92.0-98.5); BG OXYHEMOGLOBIN 52.5 % (94.0-97.0); BG PCO2 61.3 mmHg (35.0-45.0); BG PH 6.961 (7.350-7.450); BG PO2 38.3 mmHg (75.0-100.0); BG SAMPLE SITE RIGHT RADIAL; BG TIDAL VOLUME(mL) 500 mL; BG TOTAL HEMOGLOBIN 7.9 g/dL (12.0-18.0); BG VENT MODE VENT - A/C; BG VENT RATE 20 set
[2019-10-08] MEDS: LEVOTHYROXINE SODIUM 50MCG TABLET PO SCH (07:50)
[2019-10-08] MEDS: OMEPRAZOLE 20MG CAPSULE EXTENDED RELEASE PO SCH (07:50)
[2019-10-08 07:55] LABS: HEMOGLOBIN. 7.1 g/dL (12.0-16.0)
[2019-10-08] MEDS: FENTANYL CITRATE/PF 500 MCG in SODIUM CHLORIDE 0.9% 40 ML IV PRN ×2 (08:20→13:06)
[2019-10-08 08:35] LABS: NUCLEATED RED BLOOD CELLS 13 /100 WBC; PLATELET ESTIMATE DECREASED
[2019-10-08] MEDS: FLUDROCORTISONE ACETATE 0.1MG TABLET PO SCH (08:41)
[2019-10-08] MEDS: MULTIVITAMINS,THER W-MINERALS TABLET PO SCH (08:41)
[2019-10-08] MEDS: MIDODRINE HCL 5MG TABLET PO SCH (08:41)
[2019-10-08] MEDS: FOLIC ACID 1MG TABLET PO SCH (08:42)
[2019-10-08] MEDS: THIAMINE HCL 100MG TABLET PO SCH (08:42)
[2019-10-08] MEDS: PHENYLEPHRINE 40 MG in DEXT 5% WATER 496 ML IV PRN (08:53)
[2019-10-08] MEDS ORDERED: PHENYLEPHRINE 80 MG in DEXT 5% WATER 492 ML IV PRN (08:54)
[2019-10-08] MEDS: LACTULOSE 20G/30ML UDC PR SCH ×2 (09:00→15:51)
[2019-10-08 09:01] LABS: BG BASE EXCESS -13.2 mmol/L (-2.0-2.0); BG CARBOXYHEMOGLOBIN 0.3 % (0.5-1.5); BG DEOXYHEMOGLOBIN 28.2 % (0.0-5.0); BG FRACTION INSPIRED OXYGEN 100; BG HCO3 ACT 15.8 mmol/L (22.0-26.0); BG METHEMOGLOBIN 0.6 % (0.0-1.5); BG OXYGEN SATURATION 71.5 % (92.0-98.5); BG OXYHEMOGLOBIN 70.9 % (94.0-97.0); BG PCO2 55.4 mmHg (35.0-45.0); BG PH 7.073 (7.350-7.450); BG PO2 48.3 mmHg (75.0-100.0); BG SAMPLE SITE RIGHT BRACHIAL; BG TIDAL VOLUME(mL) 500 mL; BG TOTAL HEMOGLOBIN 6.5 g/dL (12.0-18.0); BG VENT MODE VENT - A/C; BG VENT RATE 24 set
[2019-10-08] MEDS ORDERED: ALBUMIN HUMAN 25GM/500ML (5%) IV ONE (10:00)
[2019-10-08] MEDS ORDERED: LACTULOSE 300 ML in WATER FOR IRRIGATION,STERILE 700 ML IR SCH (10:00)
[2019-10-08] MEDS ORDERED: METRONIDAZOLE 500 MG PREMIX 100 ML IV SCH (10:00)
[2019-10-08] MEDS ORDERED: LEVOTHYROXINE SODIUM 100 MCG/ VIAL IV SCH (10:00)
[2019-10-08] MEDS ORDERED: VANCOMYCIN 750 MG PREMIX 150 ML IV SCH (11:00)
[2019-10-08] MEDS ORDERED: MICAFUNGIN 100 MG in SODIUM CHLORIDE 0.9% 100 ML IV SCH (14:30)
[2019-10-08] MEDS ORDERED: MEROPENEM 500MG in NORMAL SALINE 50ML IV SCH (21:00)
== END 2019-10-08 19:00 | disposition expired | DRG 441 ==
LOC: ER 13:36 → EDBEDREQ 17:23 → EDBEDREQTM 17:23 → CANRESERV 09-23 17:14 → ENRESERV 09-23 17:14 → 7WST 09-23 21:58 → CVICU 10-02 11:27 → 7WST 10-02 15:35 → CVICU 10-07 15:32
PROVIDERS: ADMIT Internal Medicine Nephrology; ATTEND Internal Medicine Nephrology
PROC: 5A1D70Z Performance of Urinary Filtration, Intermittent, Less than 6 Hours Per Day (ICD-10-PCS; 2019-09-24)
PROC: 0W9G3ZZ Drainage of Peritoneal Cavity, Percutaneous Approach (ICD-10-PCS; principal; 2019-09-25)
PROC: 5A1D70Z Performance of Urinary Filtration, Intermittent, Less than 6 Hours Per Day (ICD-10-PCS; 2019-09-27)
PROC: 5A1D70Z Performance of Urinary Filtration, Intermittent, Less than 6 Hours Per Day (ICD-10-PCS; 2019-09-28)
PROC: 02HV33Z Insertion of Infusion Device into Superior Vena Cava, Percutaneous Approach (ICD-10-PCS; 2019-10-02)
PROC: B548ZZA Ultrasonography of Superior Vena Cava, Guidance (ICD-10-PCS; 2019-10-02)
PROC: 5A1D70Z Performance of Urinary Filtration, Intermittent, Less than 6 Hours Per Day (ICD-10-PCS; 2019-10-04)
PROC: 5A1935Z Respiratory Ventilation, Less than 24 Consecutive Hours (ICD-10-PCS; 2019-10-08)
PROC: 0W9G3ZZ Drainage of Peritoneal Cavity, Percutaneous Approach (ICD-10-PCS; 2019-10-08)
PROC: 30233N1 Transfusion of Nonautologous Red Blood Cells into Peripheral Vein, Percutaneous Approach (ICD-10-PCS; 2019-10-08)
PROC: 30233K1 Transfusion of Nonautologous Frozen Plasma into Peripheral Vein, Percutaneous Approach (ICD-10-PCS; 2019-10-08)
PROC: 0BH17EZ Insertion of Endotracheal Airway into Trachea, Via Natural or Artificial Opening (ICD-10-PCS; 2019-10-08)
DX: K72.00 Acute and subacute hepatic failure without coma (principal); G93.41 Metabolic encephalopathy; N18.6 End stage renal disease; J96.00 Acute respiratory failure, unspecified whether with hypoxia or hypercapnia; R65.21 Severe sepsis with septic shock; A41.9 Sepsis, unspecified organism; E43 Unspecified severe protein-calorie malnutrition; I12.0 Hypertensive chronic kidney disease with stage 5 chronic kidney disease or end stage renal disease; D68.9 Coagulation defect, unspecified; J98.11 Atelectasis; I85.00 Esophageal varices without bleeding; K22.10 Ulcer of esophagus without bleeding; E87.2 Acidosis; B19.20 Unspecified viral hepatitis C without hepatic coma; D64.9 Anemia, unspecified; E03.9 Hypothyroidism, unspecified; E87.5 Hyperkalemia; E87.8 Other disorders of electrolyte and fluid balance, not elsewhere classified; I27.20 Pulmonary hypertension, unspecified; K70.31 Alcoholic cirrhosis of liver with ascites; D69.6 Thrombocytopenia, unspecified; F10.10 Alcohol abuse, uncomplicated; I07.1 Rheumatic tricuspid insufficiency; M19.90 Unspecified osteoarthritis, unspecified site; E16.2 Hypoglycemia, unspecified; Z66 Do not resuscitate; Z87.19 Personal history of other diseases of the digestive system; Z99.2 Dependence on renal dialysis; Z87.891 Personal history of nicotine dependence; Z88.5 Allergy status to narcotic agent; Z68.26 Body mass index [BMI] 26.0-26.9, adult
CPT/HCPCS: 36415; 36600; 49083; 71045; 76705; 76937; 80048; 80053; 80076; 80202; 80307; 80320; 80329; 81003; 82105; 82140; 82375; 82550; 82805; 82947; 82962; 83036; 83605; 83735; 83880; 84100; 84145; 84443; 84484; 85025; 85379; 85384; 86705; 86709; 86803; 86850; 86900; 86920; 86927; 87070; 87106; 87340; 93005; 94003; 96360; 96361; 97110; 97162; 97166; 99285; C1725; J1644; J1650; J2185; J2248; J2270; J2370; J2543; J3010; J3370; J3490; J7030; J7050; J7060; J7070; P9016; P9017; P9041; P9047; G0480